=== PATIENT | female | born 1985 | race Caucasian/White ===

== ENCOUNTER 2016-11-18 18:41 | Inpatient (IN) | payer MEDICAID, OTHER ==
--- NOTE | 2016-11-18 19:50 | ED PDOC ---
HPI: Abdomen <SalenaSincere Bryson - Last Filed: 11/18/16 23:13> Chief Complaint (Provider): Bright red blood per rectum History Per: Patient History/Exam Limitations: no limitations Onset/Duration Of Symptoms: Days (1) Outside of [place] travel?: No Current Symptoms Are (Timing): Still Present Location Of Pain/Discomfort: Other (no abdominal pain) Associated Symptoms: denies: Fever, Chills, Nausea, Vomiting, Diarrhea, Loss Of Appetite, Back Pain, Chest Pain, Constipation, Urinary Symptoms Additional History Per: Patient Abnormal Vaginal Bleeding: No <Nanette Ruiz - Last Filed: 11/18/16 23:50> Time Seen by Provider: 11/18/16 19:00 Chief Complaint (Nursing): GI Problem Additional Complaint(s): The patient is a 30yo female, presents to ED for evaluation of bright red blood per rectum for the past day; patient reports she strains with bowel movement. Patient denies any abdominal pain, nausea, vomiting, diarrhea, fever. She also denies taking any medications for the pain. Patient offers no additional medical complaints. (Nanette Ruiz) Past Medical History <SalenaSincere Massey - Last Filed: 11/18/16 23:13> Reviewed: Historical Data, Nursing Documentation, Vital Signs - Medical History PMH: Asthma (asthma as a child but no asthma attacks during adulthood) Denies: HIV, Chronic Kidney Disease - Surgical History Surgical History: - Family History Family History: States: Unknown Family Hx - Social History Current smoker - smoking cessation education provided: No Alcohol: None Drugs: Denies - Immunization History Hx Tetanus Toxoid Vaccination: No Hx Influenza Vaccination: Yes Hx Pneumococcal Vaccination: No <Nanette Ruiz - Last Filed: 11/18/16 23:50> Vital Signs: Last Vital Signs Temp 98.9 F 11/18/16 18:48 Pulse 80 11/18/16 23:33 Resp 18 11/18/16 23:33 BP 118/73 11/18/16 23:13 Pulse Ox 99 11/18/16 23:33 - Home Medications Home Medications: Ambulatory Orders Medication Instructions Recorded Escitalopram [Lexapro] 1 tab PO DAILY 11/18/16 - Allergies Allergies/Adverse Reactions: Allergies Allergy/AdvReac Type Severity Reaction Status Date / Time No Known Allergies Allergy Verified 07/01/14 14:23 Review of Systems ROS Statement: Except As Marked, All Systems Reviewed And Found Negative Constitutional: Negative for: Fever, Chills Gastrointestinal: Positive for: Hematochezia. Negative for: Nausea, Vomiting, Abdominal Pain, Diarrhea <Nanette Ruiz Y - Last Filed: 11/18/16 23:50> Physical Exam - Reviewed Nursing Documentation Reviewed: Yes Vital Signs Reviewed: Yes - Physical Exam Appears: Positive for: Well, Non-toxic (pale), No Acute Distress Head Exam: Positive for: ATRAUMATIC, NORMAL INSPECTION, NORMOCEPHALIC Skin: Positive for: Warm, Pallor Eye Exam: Positive for: Normal appearance Neck: Positive for: Normal, Supple Cardiovascular/Chest: Positive for: Regular Rate, Rhythm Respiratory: Positive for: Normal Breath Sounds. Negative for: Respiratory Distress Gastrointestinal/Abdominal: Positive for: Normal Exam, Soft. Negative for: Tenderness Extremity: Positive for: Normal ROM Neurologic/Psych: Positive for: Alert, Oriented <Nanette Ruiz Y - Last Filed: 11/18/16 23:50> - Laboratory Results Result Diagrams: 11/18/16 20:20 11/18/16 20:20 <Sincere Martino - Last Filed: 11/18/16 23:13> - Laboratory Results Result Diagrams: 11/18/16 20:20 11/18/16 20:20 - ECG O2 Sat by Pulse Oximetry: 99 (RA) Pulse Ox Interpretation: Normal <Nanette Ruiz Y - Last Filed: 11/18/16 23:50> Medical Decision Making <Sincere Martino - Last Filed: 11/18/16 23:13> <Nanette Ruiz Y - Last Filed: 11/18/16 23:50> Medical Decision Making: Time: 1929 Impression: Hematochezia, no abdominal pain Plan: -- Rectal exam with nurse as environmental control administrator -- Labs -- Guaiac stool Reassess Time: 2019 Labs indicate low H&H levels, symptomatic anemia. hemocult positive Patient to be admitted for rectal bleeding. GI consult requested. ordered 2 units prbc but awaiting type and screen Scribe Attestation: Documented by Opal Cherry acting as a scribe for Nanette Ruiz MD. Provider Attestation: All medical record entries made by the Scribe were at my direction and personally dictated by me. I have reviewed the chart and agree that the record accurately reflects my personal performance of the history, physical exam, medical decision making, and the department course for this patient. I have also personally directed, reviewed, and agree with the discharge instructions and disposition. [id number] Consult: GI Consult with Dr. Trevino who is aware and will see the patient tomorrow morning. Scribe Attestation: Documented by Akosua Escalante, acting as a scribe for Nanette Ruiz MD (Nantete Ruiz) Disposition <Sincere Martino - Last Filed: 11/18/16 23:13> - Patient ED Disposition Is Patient to be Admitted: Yes - Disposition Disposition Time: 21:00 <Nanette Ruiz - Last Filed: 11/18/16 23:50> - Clinical Impression Clinical Impression: Rectal bleed - Disposition Condition: STABLE
[2016-11-18 20:32] LABS: BASO % 0.5 % (0.0-2.0); EOS # 0.2 K/uL (0.0-0.7); EOS % 2.3 % (0.0-4.0); HEMOGLOBIN 7.3 g/dL (12.0-16.0); LYMPH # 2.1 K/uL (1.0-4.3); MEAN CELL VOLUME 61.2 fl (81.0-99.0); MEAN CORPUSCULAR HEMOGLOBIN 18.1 pg (27.0-31.0); MEAN CORPUSCULAR HGB CONC 29.6 g/dL (33.0-37.0); MONO # 0.5 K/uL (0.0-0.8); MONO % 5.7 % (0.0-10.0); NEUT # 6.5 K/uL (1.8-7.0); NEUT % 69.5 % (50.0-75.0); RBC 4.03 Mil/uL (3.80-5.20); RED CELL DISTRIBUTION WIDTH 22.5 % (11.5-14.5); WHITE BLOOD COUNT 9.4 K/uL (4.8-10.8)
[2016-11-18 20:37] LABS: ALB/GLOB RATIO 1.3 (1.0-2.1); ALBUMIN 4.1 g/dL (3.5-5.0); ALT/SGPT 31 U/L (9-52); AST/SGOT 17 U/L (14-36); BLOOD UREA NITROGEN 10 mg/dl (7-17); CALCIUM 9.1 mg/dL (8.4-10.2); GFR AFRICAN-AMERICAN > 60; GFR NON-AFRICAN AMERICAN > 60
--- NOTE | 2016-11-18 23:18 | CP.PCM.HP ---
History of Present Illness - History of Present Illness History of Present Illness: CC: large bloody bowel movement x2 HPI 30 year old female with no known past medical history presents after having 2 very large bright red bloody BM without stool, and "very gigantic clots." She states she continues to have the sensation to have another movement but is afraid, pt advised to have movement if she needs. This is associated with lightheaded and weakness for about 24 hours as well. She also reports alternating constipation and diarrhea for about a month. Denies trauma, no hx hemorrhoids. Patient is currently receiving 2 units PRBC, 1 bolus NS, BP 114- 118 in ER, now BP 95, HR 95-99. Will closely monitor patient as she receives blood and bolus of NS. GI consulted in ER. Currently HD stable, but closely monitoring. ROS: per HPI, 12 systems reviewed and negative PMH: denies PSH: c section 2010 FH: denies SH: denies tobacco, ETOH, IVDU Meds: as below Allergies: NKDA Vitals: reviewed and currently stable Exam: GEN: WDWN, alert, cooperative, pale HEENT: NCAT, PERRL, EOMI NECK: supple, no JVD, no lymphadenopathy CARDIAC: +S1S2 RRR LUNG: CTAB No WRR ABD: SOFT NT ND BSX4 NO MASSES NO HSM EXT: +pedal pulses, equal strength NEURO: AAOx3 SKIN warm, dry PSYCH normal mood, normal affect Labs: 11/18/16 20:20 11/18/16 20:20 Assessment and Plan: 30 year old female with no known past medical history presents after having 2 very large bright red bloody BM without stool, and "very gigantic clots." She states she continues to have the sensation to have another movement but is afraid, pt advised to have movement if she needs. This is associated with lightheaded and weakness for about 24 hours as well. She also reports alternating constipation and diarrhea for about a month. Denies trauma, no hx hemorrhoids. Patient is currently receiving 2 units PRBC, 1 bolus NS, BP 114- 118 in ER, now BP 95, HR 95-99. Will closely monitor patient as she receives blood and bolus of NS. GI consulted in ER. Currently HD stable, but closely monitoring. GI Bleed H/H 7.3/24.7 Currently receiving 2 units PRBC, as well as first bolus NS repeat H/H after transfusion, CBC q6 BP between 95-108 systolic at this time, HR 95-99 will closely monitor GI consult in ER NPO denies pain Hold VTE 2/2 bleed Present on Admission - Present on Admission Any Indicators Present on Admission: No Past Patient History - Infectious Disease Hx of Infectious Diseases: None - Tetanus Immunizations Tetanus Immunization: Unknown - Past Medical History & Family History Past Medical History?: Yes - Past Social History Smoking Status: Never Smoked - CARDIAC Hx Cardiac Disorders: No - PULMONARY Hx Asthma: Yes (asthma as a child but no asthma attacks during adulthood) - NEUROLOGICAL Hx Neurological Disorder: Yes Hx Vertigo: Yes - HEENT Hx HEENT Problems: No - RENAL Hx Chronic Kidney Disease: No - ENDOCRINE/METABOLIC Hx Endocrine Disorders: No - HEMATOLOGICAL/ONCOLOGICAL Hx Human Immunodeficiency Virus (HIV): No - INTEGUMENTARY Hx Dermatological Problems: No - MUSCULOSKELETAL/RHEUMATOLOGICAL Hx Musculoskeletal Disorders: No Hx Falls: No - GASTROINTESTINAL Hx Gastrointestinal Disorders: No - GENITOURINARY/GYNECOLOGICAL Hx Genitourinary Disorders: No - PSYCHIATRIC Hx Psychophysiologic Disorder: No Hx Substance Use: No - SURGICAL HISTORY Hx Surgeries: Yes Hx Section: Yes - ANESTHESIA Hx Anesthesia: Yes Hx Anesthesia Reactions: No Hx Malignant Hyperthermia: No Meds Allergies/Adverse Reactions: Allergies Allergy/AdvReac Type Severity Reaction Status Date / Time No Known Allergies Allergy Verified 07/01/14 14:23 Results - Vital Signs Recent Vital Signs: Last Vital Signs Temp 98.9 F 11/18/16 18:48 Pulse 78 11/18/16 22:54 Resp 16 11/18/16 22:54 BP 113/45 L 11/18/16 22:54 Pulse Ox 98 11/18/16 22:54 - Labs Result Diagrams: 11/18/16 20:20 11/18/16 20:20
[2016-11-18 23:41] VITALS: RESP 18
[2016-11-19] MEDS: Sodium Chloride 0.9% 1,000 ML IV SCH ×2 (00:07→12:21)
[2016-11-19] MEDS ORDERED: Sodium Chloride 0.9% 1,000 ML IV SCH (00:30)
[2016-11-19] MEDS ORDERED: Chlorhexidine Gluconate 1 APPL/PKT TP ONE (11:22)
[2016-11-19 12:27] LABS: HEMOGLOBIN 9.6 g/dL (12.0-16.0); MEAN CELL VOLUME 67.7 fl (81.0-99.0); MEAN CORPUSCULAR HEMOGLOBIN 21.6 pg (27.0-31.0); MEAN CORPUSCULAR HGB CONC 31.8 g/dL (33.0-37.0); RBC 4.44 Mil/uL (3.80-5.20); RED CELL DISTRIBUTION WIDTH 29.1 % (11.5-14.5); WHITE BLOOD COUNT 7.3 K/uL (4.8-10.8)
[2016-11-19 12:40] LABS: BLOOD UREA NITROGEN 9 mg/dl (7-17); CALCIUM 8.7 mg/dL (8.4-10.2); GFR AFRICAN-AMERICAN > 60; GFR NON-AFRICAN AMERICAN > 60
[2016-11-19 12:48] LABS: INR 1.2 (0.9-1.2); PARTIAL THROMBOPLASTIN TIME 30.8 Seconds (25.6-37.1); PROTHROMBIN TIME 13.4 Seconds (9.8-13.1)
--- NOTE | 2016-11-19 15:06 | CP.PCM.CON ---
History of Present Illness - History of Present Illness History of Present Illness: 30 yo admitted for symptomatic anemia with abnormal GI vs vaginal bleeding , s/p 2 PRBC for transfusion. Patient reports her LMP was 10/31/16, her periods are monthly, a few days in length and in how heavy they are. Patient had some clots that she noticed yesterday, thought it was GI bleeding, +guiac. Since admission bleeding has completely stopped, no abdominal pain, no N/V, no CP, no SOB. Patient ambulating and tolerating PO diet Past Patient History - Infectious Disease Hx of Infectious Diseases: None - Tetanus Immunizations Tetanus Immunization: Unknown - Past Medical History & Family History Past Medical History?: Yes - Past Social History Smoking Status: Never Smoked - CARDIAC Hx Cardiac Disorders: No - PULMONARY Hx Asthma: Yes (asthma as a child but no asthma attacks during adulthood) - NEUROLOGICAL Hx Neurological Disorder: Yes Hx Vertigo: Yes - HEENT Hx HEENT Problems: No - RENAL Hx Chronic Kidney Disease: No - ENDOCRINE/METABOLIC Hx Endocrine Disorders: No - HEMATOLOGICAL/ONCOLOGICAL Hx Human Immunodeficiency Virus (HIV): No - INTEGUMENTARY Hx Dermatological Problems: No - MUSCULOSKELETAL/RHEUMATOLOGICAL Hx Musculoskeletal Disorders: No Hx Falls: No - GASTROINTESTINAL Hx Gastrointestinal Disorders: No - GENITOURINARY/GYNECOLOGICAL Hx Genitourinary Disorders: No - PSYCHIATRIC Hx Psychophysiologic Disorder: No Hx Substance Use: No - SURGICAL HISTORY Hx Surgeries: Yes Hx Section: Yes - ANESTHESIA Hx Anesthesia: Yes Hx Anesthesia Reactions: No Hx Malignant Hyperthermia: No Meds Allergies/Adverse Reactions: Allergies Allergy/AdvReac Type Severity Reaction Status Date / Time No Known Allergies Allergy Verified 07/01/14 14:23 - Medications Medications: Current Medications Escitalopram Oxalate (Lexapro) 10 mg PO DAILY [facility] Last Admin: 11/19/16 09:04 Dose: Not Given Sodium Chloride (Sodium Chloride 0.9%) 1,000 mls @ 150 mls/hr IV .[id number] [facility] Last Admin: 11/19/16 12:21 Dose: 150 mls/hr Pantoprazole Sodium (Protonix Inj) 40 mg IVP DAILY [facility] Last Admin: 11/19/16 09:04 Dose: 40 mg Physical Exam - Head Exam Head Exam: ATRAUMATIC - Respiratory Exam Respiratory Exam: Clear to Auscultation Bilateral, NORMAL BREATHING PATTERN - Cardiovascular Exam Cardiovascular Exam: REGULAR RHYTHM, +S1, +S2 - GI/Abdominal Exam GI & Abdominal Exam: Normal Bowel Sounds, Soft Additional comments: non-tender, no rebound, no gaurding - Extremities Exam Extremities exam: Positive for: normal inspection Results - Vital Signs Recent Vital Signs: Last Vital Signs Temp 98.3 F 11/19/16 11:12 Pulse 73 11/19/16 11:12 Resp 18 11/19/16 11:12 BP 101/66 11/19/16 11:12 Pulse Ox 98 11/19/16 11:12 - Labs Result Diagrams: 11/19/16 12:00 11/19/16 12:00 Labs: Laboratory Results - last 24 hr 11/18/16 11/19/16 11/19/16 22:28 12:00 12:00 WBC 7.3 RBC 4.44 Hgb 9.6 L D Hct 30.1 L MCV 67.7 L D MCH 21.6 L MCHC 31.8 L RDW 29.1 H Plt Count 245 PT INR APTT Sodium 140 Potassium 4.0 Chloride 110 H Carbon Dioxide 22 Anion Gap 12 BUN 9 Creatinine 0.6 L Est GFR ( Amer) > 60 Est GFR (Non-Af Amer) > 60 Random Glucose 84 Calcium 8.7 Blood Type O POSITIVE Antibody Screen Negative Crossmatch See Detail BBK History Checked Patient has bt 11/19/16 12:00 WBC RBC Hgb Hct MCV MCH MCHC RDW Plt Count PT 13.4 H INR 1.2 APTT 30.8 Sodium Potassium Chloride Carbon Dioxide Anion Gap BUN Creatinine Est GFR ( Amer) Est GFR (Non-Af Amer) Random Glucose Calcium Blood Type Antibody Screen Crossmatch BBK History Checked Assessment & Plan - Assessment and Plan (Free Text) Assessment: A/P 30 yo with possibly irregular vaginal bleeding 1. Patient's LMP was 10/31/16, usually normal, 28 day cycle, moderate. Patient possibly had some irregular vaginal bleeding. Can send for vaginal U/S to evaluate. Patient denies use of contraceptives 2. Otherwise patient is s/p 2 PRBC and stable, VSS. No longer having bleeding. Patient can follow up with outpatient private [employer] for continued care 3. COnsultation appreciated - Date & Time Date: 11/19/16 Time: 15:06
--- NOTE | 2016-11-19 15:57 | US ---
HISTORY: vaginal bleed ? COMPARISON: None available. TECHNIQUE: FINDINGS: UTERUS: Measures 10.5 x 3.7 x 4.3 cm. The uterus is retroverted. Evaluation on transvaginal examination is technically limited due to excessive bowel gas. No fibroid or other mass lesion seen. ENDOMETRIUM: Measures 8.0 mm in diameter. Unremarkable. CERVIX: There is a small nabothian cyst. RIGHT OVARY: Measures 3.1 x 1.8 x 2.2 cm. No solid mass. Normal flow. LEFT OVARY: Measures 2.4 x 1.5 x 2.2 cm. No solid mass. Normal flow. FREE FLUID: No significant free fluid noted. OTHER FINDINGS: None. IMPRESSION: Evaluation of the uterus is technically limited and also partially limited due to excessive bowel gas. The central endometrial echo complex appears normal. No ovarian cyst or adnexal mass.
[2016-11-19 16:08] VITALS: BP 101/62; PULSE 75; TEMP 98.4; O2SAT 99
--- NOTE | 2016-11-19 16:46 | CP.PCM.DIS ---
Provider - Provider Date of Admission: 11/18/16 22:21 Attending physician: Precious Gimenez DO Consults: Dr Uriel Pichardo Time Spent in preparation of Discharge (in minutes): 30 Diagnosis - Discharge Diagnosis (1) Microcytic anemia Status: Acute Comment: to follow up with PCP for outpatient management and evaluation. continue FeSO4 325mg PO BID Hospital Course - Lab Results Lab Results: Most Recent Lab Values WBC 7.3 K/uL (4.8-10.8) 11/19/16 12:00 RBC 4.44 Mil/uL (3.80-5.20) 11/19/16 12:00 Hgb 9.6 g/dL (12.0-16.0) L D 11/19/16 12:00 Hct 30.1 % (34.0-47.0) L 11/19/16 12:00 MCV 67.7 fl (81.0-99.0) L D 11/19/16 12:00 MCH 21.6 pg (27.0-31.0) L 11/19/16 12:00 MCHC 31.8 g/dL (33.0-37.0) L 11/19/16 12:00 RDW 29.1 % (11.5-14.5) H 11/19/16 12:00 Plt Count 245 K/uL (130-400) 11/19/16 12:00 MPV 10.0 fl (7.2-11.7) 11/18/16 20:20 Neut % (Auto) 69.5 % (50.0-75.0) 11/18/16 20:20 Lymph % (Auto) 22.0 % (20.0-40.0) 11/18/16 20:20 [place] % (Auto) 5.7 % (0.0-10.0) 11/18/16 20:20 Eos % (Auto) 2.3 % (0.0-4.0) 11/18/16 20:20 Baso % (Auto) 0.5 % (0.0-2.0) 11/18/16 20:20 Neut # 6.5 K/uL (1.8-7.0) 11/18/16 20:20 Lymph # 2.1 K/uL (1.0-4.3) 11/18/16 20:20 [place] # 0.5 K/uL (0.0-0.8) 11/18/16 20:20 Eos # 0.2 K/uL (0.0-0.7) 11/18/16 20:20 Baso # 0.0 K/uL (0.0-0.2) 11/18/16 20:20 PT 13.4 Seconds (9.8-13.1) H 11/19/16 12:00 INR 1.2 (0.9-1.2) 11/19/16 12:00 APTT 30.8 Seconds (25.6-37.1) 11/19/16 12:00 Sodium 140 mmol/l (132-148) 11/19/16 12:00 Potassium 4.0 MMOL/L (3.6-5.0) 11/19/16 12:00 Chloride 110 mmol/L (98-107) H 11/19/16 12:00 Carbon Dioxide 22 mmol/L (22-30) 11/19/16 12:00 Anion Gap 12 (10-20) 11/19/16 12:00 BUN 9 mg/dl (7-17) 11/19/16 12:00 Creatinine 0.6 mg/dL (0.7-1.2) L 11/19/16 12:00 Est GFR ( Amer) > 60 11/19/16 12:00 Est GFR (Non-Af Amer) > 60 11/19/16 12:00 Random Glucose 84 mg/dL (65-105) 11/19/16 12:00 Calcium 8.7 mg/dL (8.4-10.2) 11/19/16 12:00 Total Bilirubin 0.3 mg/dl (0.2-1.3) 11/18/16 20:20 AST 17 U/L (14-36) 11/18/16 20:20 ALT 31 U/L (9-52) 11/18/16 20:20 Alkaline Phosphatase 109 U/L (38-126) 11/18/16 20:20 Total Protein 7.3 G/DL (6.3-8.2) 11/18/16 20:20 Albumin 4.1 g/dL (3.5-5.0) 11/18/16 20:20 Globulin 3.2 gm/dL (2.2-3.9) 11/18/16 20:20 Albumin/Globulin Ratio 1.3 (1.0-2.1) 11/18/16 20:20 Stool Occult Blood Negative (NEGATIVE) 11/18/16 21:22 Blood Type O POSITIVE 11/18/16 22:28 Antibody Screen Negative 11/18/16 22:28 Crossmatch See Detail 11/18/16 22:28 BBK History Checked Patient has bt 11/18/16 22:28 - Hospital Course Hospital Course: 30 yo female with no significant PMH came in after noticing 2 episodes of passing large amount of blood in the toilet bowl. Not sure it blood came from rectum or from the vagina. Complained of lightheadedness and weakness. Initial CBC showed Hgb of 7.3. She was typed and crossed and received 2 units of PRBC. Hgb went up to 9.6 and patient claimed she felt much better. Pt was referred to GI, Dr Trevino for work ups but rectal exam was negative for stool guiac. [facility] was consulted with Dr Pichardo for possible vaginal bleed. Transvaginal abdl/ Pelvic sonogram was done which showed normal ECHO. Patient's LMP was 10/31/2016. Blood on toilet bowl were menstrual. Dr Pichardo advised follow up in [facility]. Also advised to see PCP for outpatient follow with Microcytic, Microchromic Anemia. Discharge Exam - Head Exam Head Exam: ATRAUMATIC - Eye Exam Eye Exam: absent: Scleral icterus - ENT Exam ENT Exam: Mucous Membranes Moist - Respiratory Exam Respiratory Exam: NORMAL BREATHING PATTERN. absent: Wheezes, Respiratory Distress - Cardiovascular Exam Cardiovascular Exam: REGULAR RHYTHM, +S1, +S2 - GI/Abdominal Exam GI & Abdominal Exam: Soft. absent: Tenderness - Rectal Exam Rectal Exam: Deferred - Neurological Exam Neurological exam: Alert, Oriented x3 - Psychiatric Exam Psychiatric exam: Normal Affect - Skin Skin Exam: Dry, Intact Discharge Plan - Discharge Medications Prescriptions: Ferrous Sulfate [Iron] 325 mg PO BID #30 capsule.er - Follow Up Plan Condition: STABLE Disposition: HOME/ ROUTINE Instructions: Dysfunctional Uterine Bleeding (DC), Rectal Bleeding (DC), Iron Rich Diet (DC), Anemia (DC) Referrals: [facility] [place] [Outside]
--- NOTE | 2016-11-22 09:21 | CON ---
DATE: 11/19/2016 REASON FOR CONSULTATION: Rectal bleeding. HISTORY OF PRESENT ILLNESS: This is a 30-year-old female essentially had brought in for 2 large bright bowel movements and passage of clots. No rectal pain or bleeding prior to this. No burning abdominal discomfort. No weight loss. Currently, lying in bed, in no apparent distress. REVIEW OF SYSTEMS: Have been reviewed, negative apart from the HPI. PHYSICAL EXAMINATION: GENERAL: A pleasant young female, lying in bed comfortably, in no apparent distress. VITAL SIGNS: During the hospital grossly unremarkable. HEENT: Head, normocephalic, atraumatic. Eyes, pupils are equal and reactive to light. No conjunctival pallor or icterus. NECK: Supple. Normal range of motion. No lymphadenopathy appreciated. LUNGS: Coarse . HEART: S1 and S2. Regular rate and rhythm. No . ABDOMEN: Soft, nontender. Bowel sounds present. RECTAL: Has no blood seen . NEUROLOGIC: Alert x3. LABORATORY DATA: Labs have been reviewed. WBC is 9.5, hemoglobin is 7.3, hematocrit of 24.7 normal. ASSESSMENT AND PLAN: This is a 30-year-old female with rectal bleeding. Unclear if this is rectal bleeding, but she said she had a period last night, this morning. On my exam, there is no blood in the vault. This could be vaginal from her periods, unclear etiology, [employer] consult. From GI standpoint, if this is not D[employer]ING [employer]USSER, will likely need a colonoscopy sometime at the patient's convenience. Thank you for the consult. Chas Trevino MD/ PhD
== END 2016-11-19 17:35 | disposition home or self-care (01) | DRG 812 ==
LOC: H.ER 18:41 → H.ERHOLD 22:21 → H.TEL 23:18
PROVIDERS: ADMIT Student in an Organized Health Care Education/Training Program; ATTEND Student in an Organized Health Care Education/Training Program
PROC: 30233N1 Transfusion of Nonautologous Red Blood Cells into Peripheral Vein, Percutaneous Approach (ICD-10-PCS; principal; 2016-11-18)
DX: D50.8 Other iron deficiency anemias (principal); N93.8 Other specified abnormal uterine and vaginal bleeding; J45.909 Unspecified asthma, uncomplicated; K59.00 Constipation, unspecified

== ENCOUNTER 2017-06-28 12:22 | Observation (INO) | payer SELFPAY ==
[2017-06-28] MEDS ORDERED: Sodium Chloride 0.9% 1,000 ML IV STA (13:11)
--- NOTE | 2017-06-28 13:51 | ED PDOC ---
HPI: General Adult Time Seen by Provider: 06/28/17 12:38 Chief Complaint (Nursing): Dizziness/Lightheaded Chief Complaint (Provider): Dizziness/lightheaded History Per: Patient History/Exam Limitations: no limitations Onset/Duration Of Symptoms: Hrs (today) Current Symptoms Are (Timing): Still Present Additional Complaint(s): Ibeth Gan is a 31 year old female, with a past medical history of GI bleeding and anemia, who was sent to the emergency department by clinic for bloody stool, weakness and lightheadedness onset since today. Patient was seen by clinic today but was sent here because of low hemoglobin of 7.9 and possible need for a transfusion. Patient denies any fever, chills, headache, vision changes, numbness or tingling, nausea, vomit, diarrhea, abdominal pain, shortness of breath or chest pain. No further medical complaints. PMD: None provide. Past Medical History Reviewed: Historical Data, Nursing Documentation, Vital Signs Vital Signs: Last Vital Signs Temp 99 F 06/28/17 12:49 Pulse 73 06/28/17 12:49 Resp 18 06/28/17 12:49 BP 113/65 06/28/17 12:49 Pulse Ox 100 06/28/17 14:08 - Medical History PMH: Anemia, Anxiety, Asthma (asthma as a child but no asthma attacks during adulthood) Denies: HIV, Chronic Kidney Disease - Surgical History Surgical History: - Family History Family History: States: Unknown Family Hx - Immunization History Hx Tetanus Toxoid Vaccination: No Hx Influenza Vaccination: Yes Hx Pneumococcal Vaccination: No - Home Medications Home Medications: Ambulatory Orders Medication Instructions Recorded Ferrous Sulfate [Feosol] 325 mg PO TID 06/28/17 - Allergies Allergies/Adverse Reactions: Allergies Allergy/AdvReac Type Severity Reaction Status Date / Time No Known Allergies Allergy Verified 06/28/17 12:48 Review of Systems ROS Statement: Except As Marked, All Systems Reviewed And Found Negative Constitutional: Positive for: Weakness. Negative for: Fever, Chills Eyes: Negative for: Vision Change Cardiovascular: Positive for: Light Headedness. Negative for: Chest Pain Respiratory: Negative for: Shortness of Breath Gastrointestinal: Positive for: Hematochezia. Negative for: Nausea, Vomiting, Abdominal Pain, Diarrhea Neurological: Negative for: Numbness, Headache Physical Exam - Reviewed Nursing Documentation Reviewed: Yes Vital Signs Reviewed: Yes - Physical Exam Appears: Positive for: Non-toxic Head Exam: Positive for: ATRAUMATIC, NORMAL INSPECTION, NORMOCEPHALIC Skin: Positive for: Normal Color, Warm, Dry Eye Exam: Positive for: Normal appearance, EOMI, PERRL Neck: Positive for: Painless ROM, Supple Cardiovascular/Chest: Positive for: Regular Rate, Rhythm. Negative for: Murmur Respiratory: Positive for: Normal Breath Sounds (clear b/l). Negative for: Respiratory Distress Gastrointestinal/Abdominal: Positive for: Normal Exam, Soft. Negative for: Tenderness, Guarding, Rebound Back: Positive for: Normal Inspection. Negative for: L CVA Tenderness, R CVA Tenderness, Vertebral Tenderness Rectal: Positive for: Rectal Tone Is: (intact). Negative for: Other (No gross blood identified.) Extremity: Positive for: Normal ROM. Negative for: Tenderness, Deformity, Swelling Neurologic/Psych: Positive for: Alert, Oriented. Negative for: Motor/Sensory Deficits - Laboratory Results Result Diagrams: 06/28/17 14:00 06/28/17 14:00 Interpretation Of Abn Labs: 7.6 hg - ECG O2 Sat by Pulse Oximetry: 100 (RA) Pulse Ox Interpretation: Normal - Progress ED Course And Treament: 1452: Stable. AAOx3. Will need transfusion. Pt. aware. [facility]. Will admit. Medical Decision Making Medical Decision Making: Initial Impression: Initial Plan: --ABO/RH Type --Type and screen --CMP --CBC w/ differential --PTT --PT --Sodium Chloride 1,000 ml IV 1,000 mls/hr --Occult blood, stool, ER --Reevaluation Scribe Attestation: Documented by Claude George, acting as a scribe for Emre Alejo MD Provider Scribe Attestation: All medical record entries made by the Scribe were at my direction and personally dictated by me. I have reviewed the chart and agree that the record accurately reflects my personal performance of the history, physical exam, medical decision making, and the department course for this patient. I have also personally directed, reviewed, and agree with the discharge instructions and disposition. Disposition - Disposition Forms: [employer] (Vietnamese)
[2017-06-28 14:16] LABS: ALB/GLOB RATIO 1.3 (1.0-2.1); ALBUMIN 4.1 g/dL (3.5-5.0); ALT/SGPT 24 U/L (9-52); AST/SGOT 16 U/L (14-36); BLOOD UREA NITROGEN 8 mg/dl (7-17); CALCIUM 9.4 mg/dL (8.4-10.2); GFR AFRICAN-AMERICAN > 60; GFR NON-AFRICAN AMERICAN > 60
[2017-06-28 14:27] LABS: BASO # 0.1 K/uL (0.0-0.2); BASO % 0.7 % (0.0-2.0); EOS # 0.1 K/uL (0.0-0.7); EOS % 1.8 % (0.0-4.0); HEMOGLOBIN 7.6 g/dL (12.0-16.0); LYMPH # 2.2 K/uL (1.0-4.3); LYMPH % 29.7 % (20.0-40.0); MEAN CELL VOLUME 61.9 fl (81.0-99.0); MEAN CORPUSCULAR HEMOGLOBIN 18.7 pg (27.0-31.0); MEAN CORPUSCULAR HGB CONC 30.2 g/dL (33.0-37.0); MEAN PLATELET VOLUME 9.4 fl (7.2-11.7); MONO # 0.4 K/uL (0.0-0.8); MONO % 5.8 % (0.0-10.0); NEUT # 4.7 K/uL (1.8-7.0); RBC 4.08 Mil/uL (3.80-5.20); RED CELL DISTRIBUTION WIDTH 16.8 % (11.5-14.5); WHITE BLOOD COUNT 7.5 K/uL (4.8-10.8)
[2017-06-28 14:32] LABS: INR 1.2 (0.9-1.2); PROTHROMBIN TIME 13.4 Seconds (9.8-13.1)
[2017-06-28 14:33] LABS: PARTIAL THROMBOPLASTIN TIME 30.5 Seconds (25.6-37.1)
--- NOTE | 2017-06-28 16:11 | CP.PCM.HP ---
History of Present Illness - History of Present Illness History of Present Illness: CC: dizziness HPI: The patient is a 31 y/o woman w/ pmh of anemia presents to the ED sent from the clinic for symptomatic anemia. The patient reports dizziness for 1 week, states the room is spinning but denies headaches, paresthesias, chest pain , SOB, palpitations, abdominal pain, nausea, vomiting, or fever. Patient also reports that she did not eat prior to clinic visit. The patient reports history of anemia and repeatedly bloody bowel movements prompting previous ED visits and admission in the past. The patient was last admitted in 11/2016 for which she received 2 units of PRBC. The patient reports regular menses with no menorrhagia, she reports 5 days of bleeding and uses 3-4 pads/day. The patient is and had in 2010. The patient reports using condoms for control with her . Patient denies history of STDs. The patient takes iron and vitamin supplements. The patient has no other complaints. PMD: [facility] PMH: iron deficiency anemia, obesity allergies: NKDA meds: iron sulfate [employer]: - regular menses, 5 days, 3-4 pads/day - , 2010 - uses condoms for control - denies history of STDs PSH: 2010 Fam: mother 46 y/o HTN, DM2, uterine cancer s/p hysterectomy; father 55 y/o HTN , DM2 Soc: denies smoking, alcohol, and drugs ED course: vitals: 99.0 F, 73 beats/min, 113/65 mm Hg, resp 18, O2 100% RA CBC: 7.5>7.6/25.3<328 CMP: 141/4.0, 103/25, 8/0.6, glucose 100, AST 16, ALT 24, alk phos 100 ABO/Rh: O+ PT: 13.4 PTT: 30.5 INR: 1.2 FOBT: negative EKG: NSR IVF NS 1L bolus 2 units PRBC ordered and to be transfused Present on Admission - Present on Admission Any Indicators Present on Admission: No History of DVT/PE: No History of Uncontrolled Diabetes: No Urinary Catheter: No Decubitus Ulcer Present: No Review of Systems - Review of Systems All systems: reviewed and no additional remarkable complaints except - Constitutional Constitutional: absent: Anorexia, Fever, Headache - EENT Eyes: absent: Change in Vision - Cardiovascular Cardiovascular: absent: Chest Pain, Dyspnea, Irregular Heart Rhythm, Leg Edema, Palpitations, Pedal Edema - Respiratory Respiratory: absent: Cough - Gastrointestinal Gastrointestinal: Hematochezia. absent: Abdominal Pain, Coffee Ground Emesis, Diarrhea, Nausea, Vomiting - Genitourinary Genitourinary: absent: Dysuria, Hematuria - Reproductive: Female Reproductive:Female: Menses 1-7 Days - Menstruation Menstruation: absent: Heavy Menses, Abnormal Vaginal Bleeding - Integumentary Integumentary: absent: Rash - Neurological Neurological: Dizziness. absent: Numbness, Headaches, Tingling Past Patient History - Infectious Disease Hx of Infectious Diseases: None - Tetanus Immunizations Tetanus Immunization: Unknown - Past Medical History & Family History Past Medical History?: Yes - Past Social History Smoking Status: Never Smoked - CARDIAC Hx Cardiac Disorders: No - PULMONARY Hx Asthma: Yes (asthma as a child but no asthma attacks during adulthood) - NEUROLOGICAL Hx Neurological Disorder: Yes Hx Vertigo: Yes - HEENT Hx HEENT Problems: No - RENAL Hx Chronic Kidney Disease: No - ENDOCRINE/METABOLIC Hx Endocrine Disorders: No - HEMATOLOGICAL/ONCOLOGICAL Hx Anemia: Yes Hx Human Immunodeficiency Virus (HIV): No - INTEGUMENTARY Hx Dermatological Problems: No - MUSCULOSKELETAL/RHEUMATOLOGICAL Hx Musculoskeletal Disorders: No Hx Falls: No - GASTROINTESTINAL Hx Gastrointestinal Disorders: No - GENITOURINARY/GYNECOLOGICAL Hx Genitourinary Disorders: No - PSYCHIATRIC Hx Anxiety: Yes - SURGICAL HISTORY Hx Surgeries: Yes Hx Section: Yes - ANESTHESIA Hx Anesthesia: Yes Hx Anesthesia Reactions: No Hx Malignant Hyperthermia: No Meds Allergies/Adverse Reactions: Allergies Allergy/AdvReac Type Severity Reaction Status Date / Time No Known Allergies Allergy Verified 06/28/17 12:48 Physical Exam - Constitutional Appears: No Acute Distress - Head Exam Head Exam: ATRAUMATIC, NORMAL INSPECTION, NORMOCEPHALIC - Eye Exam Eye Exam: EOMI, Normal appearance, PERRL. absent: Scleral icterus Pupil Exam: NORMAL ACCOMODATION Additional comments: mild pallor of the conjuctiva - ENT Exam ENT Exam: Mucous Membranes Moist - Neck Exam Neck exam: Positive for: Full Rom. Negative for: Tenderness - Respiratory Exam Respiratory Exam: Clear to Auscultation Bilateral, NORMAL BREATHING PATTERN. absent: Decreased Breath Sounds, Rales, Rhonchi, Wheezes, Respiratory Distress - Cardiovascular Exam Cardiovascular Exam: REGULAR RHYTHM - GI/Abdominal Exam GI & Abdominal Exam: Normal Bowel Sounds, Soft. absent: Distended, Tenderness - Extremities Exam Extremities exam: Positive for: normal inspection. Negative for: calf tenderness, pedal edema, tenderness - Neurological Exam Neurological exam: Alert, CN II-XII Intact, Oriented x3 - Skin Skin Exam: Dry, Intact, Pallor, Warm Results - Vital Signs Recent Vital Signs: Last Vital Signs Temp 98.4 F 06/28/17 15:29 Pulse 79 06/28/17 15:29 Resp 16 06/28/17 15:29 BP 93/65 L 06/28/17 15:29 Pulse Ox 100 06/28/17 15:29 - Labs Result Diagrams: 06/28/17 14:00 06/28/17 14:00 Labs: Laboratory Results - last 24 hr 06/28/17 06/28/17 06/28/17 13:50 14:00 14:00 WBC 7.5 RBC 4.08 Hgb 7.6 L Hct 25.3 L MCV 61.9 L D MCH 18.7 L MCHC 30.2 L RDW 16.8 H Plt Count 328 MPV 9.4 Neut % (Auto) 62.0 Lymph % (Auto) 29.7 [place] % (Auto) 5.8 Eos % (Auto) 1.8 Baso % (Auto) 0.7 Neut # (Auto) 4.7 Lymph # (Auto) 2.2 [place] # (Auto) 0.4 Eos # (Auto) 0.1 Baso # (Auto) 0.1 PT INR APTT Sodium Potassium Chloride Carbon Dioxide Anion Gap BUN Creatinine Est GFR ( Amer) Est GFR (Non-Af Amer) Random Glucose Calcium Total Bilirubin AST ALT Alkaline Phosphatase Total Protein Albumin Globulin Albumin/Globulin Ratio Stool Occult Blood Negative Blood Type O POSITIVE Antibody Screen Negative Crossmatch See Detail BBK History Checked Patient has bt 06/28/17 06/28/17 14:00 14:00 WBC RBC Hgb Hct MCV MCH MCHC RDW Plt Count MPV Neut % (Auto) Lymph % (Auto) [place] % (Auto) Eos % (Auto) Baso % (Auto) Neut # (Auto) Lymph # (Auto) [place] # (Auto) Eos # (Auto) Baso # (Auto) PT 13.4 H INR 1.2 APTT 30.5 Sodium 141 Potassium 4.0 Chloride 103 Carbon Dioxide 25 Anion Gap 17 BUN 8 Creatinine 0.6 L Est GFR ( Amer) > 60 Est GFR (Non-Af Amer) > 60 Random Glucose 100 Calcium 9.4 Total Bilirubin 0.7 AST 16 ALT 24 Alkaline Phosphatase 100 Total Protein 7.3 Albumin 4.1 Globulin 3.2 Albumin/Globulin Ratio 1.3 Stool Occult Blood Blood Type Antibody Screen Crossmatch BBK History Checked Assessment & Plan - Assessment and Plan (Free Text) Assessment: The patient is a 31 y/o woman w/ pmh of anemia presents to the ED sent from the clinic for symptomatic anemia Plan: Symptomatic anemia - complains only of dizziness when standing, walking, and even while in stretcher - patient has chronic iron deficiency anemia, denies menorrhagia - patient on Ferrous Sulfate 325 mg PO TID, continue medication - Has appointment 06/30/2017 for colonoscopy due to repeated bright red blood per rectum - vitals: 99.0 F, 73 beats/min, 113/65 mm Hg, resp 18, O2 100% RA - CBC: 7.5>7.6/25.3<328, MCV 61.9 - CMP: 141/4.0, 103/25, 8/0.6, glucose 100, AST 16, ALT 24, alk phos 100 - ABO/Rh: O+ - PT: 13.4 - PTT: 30.5 - INR: 1.2 - FOBT: negative - EKG: NSR - IVF NS 1L bolus - 2 units PRBC ordered and to be administered - orthostatic BPs - admit to Tele for observation - monitor for acute changes Prophylactic measures - SCDs for now due to symptomatic anemia
[2017-06-29 05:34] LABS: BASO # 0.1 K/uL (0.0-0.2); BASO % 0.7 % (0.0-2.0); EOS # 0.3 K/uL (0.0-0.7); EOS % 3.2 % (0.0-4.0); HEMOGLOBIN 11.1 g/dL (12.0-16.0); LYMPH # 3.2 K/uL (1.0-4.3); LYMPH % 33.9 % (20.0-40.0); MEAN CELL VOLUME 67.5 fl (81.0-99.0); MEAN CORPUSCULAR HGB CONC 32.5 g/dL (33.0-37.0); MEAN PLATELET VOLUME 9.5 fl (7.2-11.7); MONO # 0.7 K/uL (0.0-0.8); MONO % 7.5 % (0.0-10.0); NEUT # 5.1 K/uL (1.8-7.0); NEUT % 54.7 % (50.0-75.0); NRBC % 0.1 % (0.0-0.0); RBC 5.06 Mil/uL (3.80-5.20); RED CELL DISTRIBUTION WIDTH 21.5 % (11.5-14.5); WHITE BLOOD COUNT 9.4 K/uL (4.8-10.8)
[2017-06-29 07:58] VITALS: BP 104/67; PULSE 88; RESP 18; TEMP 98.7; O2SAT 99
[2017-06-29] MEDS ORDERED: Pneumococcal 23-Valent Vaccine IM ONE (09:00)
--- NOTE | 2017-06-29 10:18 | CP.PCM.DIS ---
Provider - Provider Date of Admission: 06/28/17 15:02 Attending physician: Kyali Quezada MD Time Spent in preparation of Discharge (in minutes): 15 Diagnosis - Discharge Diagnosis (1) Symptomatic anemia Status: Acute (2) Dizziness Status: Resolved Hospital Course - Lab Results Lab Results: Most Recent Lab Values WBC 9.4 K/uL (4.8-10.8) 06/29/17 04:20 RBC 5.06 Mil/uL (3.80-5.20) 06/29/17 04:20 Hgb 11.1 g/dL (12.0-16.0) L D 06/29/17 04:20 Hct 34.2 % (34.0-47.0) 06/29/17 04:20 MCV 67.5 fl (81.0-99.0) L D 06/29/17 04:20 MCH 22.0 pg (27.0-31.0) L 06/29/17 04:20 MCHC 32.5 g/dL (33.0-37.0) L 06/29/17 04:20 RDW 21.5 % (11.5-14.5) H 06/29/17 04:20 Plt Count 315 K/uL (130-400) 06/29/17 04:20 MPV 9.5 fl (7.2-11.7) 06/29/17 04:20 Neut % (Auto) 54.7 % (50.0-75.0) 06/29/17 04:20 Lymph % (Auto) 33.9 % (20.0-40.0) 06/29/17 04:20 [place] % (Auto) 7.5 % (0.0-10.0) 06/29/17 04:20 Eos % (Auto) 3.2 % (0.0-4.0) 06/29/17 04:20 Baso % (Auto) 0.7 % (0.0-2.0) 06/29/17 04:20 Neut # (Auto) 5.1 K/uL (1.8-7.0) 06/29/17 04:20 Lymph # (Auto) 3.2 K/uL (1.0-4.3) 06/29/17 04:20 [place] # (Auto) 0.7 K/uL (0.0-0.8) 06/29/17 04:20 Eos # (Auto) 0.3 K/uL (0.0-0.7) 06/29/17 04:20 Baso # (Auto) 0.1 K/uL (0.0-0.2) 06/29/17 04:20 PT 13.4 Seconds (9.8-13.1) H 06/28/17 14:00 INR 1.2 (0.9-1.2) 06/28/17 14:00 APTT 30.5 Seconds (25.6-37.1) 06/28/17 14:00 Sodium 141 mmol/l (132-148) 06/28/17 14:00 Potassium 4.0 MMOL/L (3.6-5.0) 06/28/17 14:00 Chloride 103 mmol/L (98-107) 06/28/17 14:00 Carbon Dioxide 25 mmol/L (22-30) 06/28/17 14:00 Anion Gap 17 (10-20) 06/28/17 14:00 BUN 8 mg/dl (7-17) 06/28/17 14:00 Creatinine 0.6 mg/dl (0.7-1.2) L 06/28/17 14:00 Est GFR ( Amer) > 60 06/28/17 14:00 Est GFR (Non-Af Amer) > 60 06/28/17 14:00 Random Glucose 100 mg/dL (65-105) 06/28/17 14:00 Calcium 9.4 mg/dL (8.4-10.2) 06/28/17 14:00 Total Bilirubin 0.7 mg/dl (0.2-1.3) 06/28/17 14:00 AST 16 U/L (14-36) 06/28/17 14:00 ALT 24 U/L (9-52) 06/28/17 14:00 Alkaline Phosphatase 100 U/L (38-126) 06/28/17 14:00 Total Protein 7.3 G/DL (6.3-8.2) 06/28/17 14:00 Albumin 4.1 g/dL (3.5-5.0) 06/28/17 14:00 Globulin 3.2 gm/dL (2.2-3.9) 06/28/17 14:00 Albumin/Globulin Ratio 1.3 (1.0-2.1) 06/28/17 14:00 Urine HCG, Qual Negative (NEGATIVE) 06/29/17 09:07 Stool Occult Blood Negative (NEGATIVE) 06/28/17 13:50 Blood Type O POSITIVE 06/28/17 14:00 Antibody Screen Negative 06/28/17 14:00 Crossmatch See Detail 06/28/17 14:00 BBK History Checked Patient has bt 06/28/17 14:00 - Hospital Course Hospital Course: The patient is a 31 y/o woman w/ pmh of anemia presents to the ED sent from the clinic for symptomatic anemia. The patient reports dizziness for 1 week, states the room is spinning but denies headaches, paresthesias, chest pain, SOB , palpitations, abdominal pain, nausea, vomiting, or fever. The patient VSS, CBC showed Hb 7.6, BMP WNL, FOBT negative. The patient had blood type and screen; thus, received 2 units of PRBC without complications. The patient's Hb 11.1 this morning. The patient has no complaints and dizziness has resolved. The patient has been seen, examined, and deemed medically fit for discharge home. The patient is to follow up w/ scheduled colonoscopy for tomorrow. Patient is to follow up w/ [facility] s/p colonsocopy. Discharge Exam - Head Exam Head Exam: ATRAUMATIC, NORMAL INSPECTION, NORMOCEPHALIC - Eye Exam Eye Exam: Normal appearance - ENT Exam ENT Exam: Mucous Membranes Moist - Neck Exam Neck exam: Full Rom - Respiratory Exam Respiratory Exam: Clear to PA & Lateral, UNREMARKABLE. absent: Decreased Breath Sounds, Rales, Rhonchi, Wheezes, Respiratory Distress - Cardiovascular Exam Cardiovascular Exam: REGULAR RHYTHM. absent: Tachycardia - GI/Abdominal Exam GI & Abdominal Exam: Normal Bowel Sounds, Soft. absent: Distended, Tenderness - Extremities Exam Extremities exam: normal inspection - Neurological Exam Neurological exam: Alert, CN II-XII Intact, Normal Gait, Oriented x3 - Skin Skin Exam: Dry, Intact, Normal Color, Warm Discharge Plan - Follow Up Plan Condition: STABLE Disposition: HOME/ ROUTINE Referrals: Laurie Cedeño MD [Medical Doctor] - [facility] [Outside]
--- NOTE | 2017-06-29 22:22 | CARD ---
APPROVED REPORT EKG Measurement Heart [id number] <Conclusion> Normal sinus rhythm Normal ECG
== END 2017-06-29 11:00 | disposition home or self-care (01) ==
LOC: H.ER 12:22 → H.ERHOLD 15:02 → H.TEL 18:20
PROVIDERS: ADMIT Family Medicine Geriatric Medicine; ATTEND Family Medicine Geriatric Medicine
DX: D50.9 Iron deficiency anemia, unspecified (principal); E66.9 Obesity, unspecified; Z68.29 Body mass index [BMI] 29.0-29.9, adult; Z23 Encounter for immunization; F41.9 Anxiety disorder, unspecified
CPT/HCPCS: 36415; 36430; 80053; 84703; 85025; 85610; 85730; 86850; 86900; 86920; 90471; 90732; 93005; 96360; 99285; G0328; G0378; J7040; P9051

== ENCOUNTER 2017-06-30 10:16 | Day surgery (SDC) | payer SELFPAY ==
[2017-06-30] MEDS ORDERED: Lactated Ringer's 1,000 ML IV ONE (10:33)
[2017-06-30] MEDS ORDERED: Lidocaine PF 2% (5 ml) Inj (For Cardiac Arrhy) IV ONE (11:29)
[2017-06-30] MEDS ORDERED: Propofol 10 mg/ml Inj (20 ML) ONE (11:29)
[2017-06-30 12:27] VITALS: TEMP 97.5
[2017-06-30 12:43] VITALS: BP 104/52; PULSE 75; RESP 14; O2SAT 97
== END 2017-06-30 13:53 | disposition home or self-care (01) ==
LOC: H.ENDO 10:16
PROVIDERS: ATTEND Internal Medicine Gastroenterology
DX: K62.5 Hemorrhage of anus and rectum (principal); D50.9 Iron deficiency anemia, unspecified; K62.89 Other specified diseases of anus and rectum; C20 Malignant neoplasm of rectum
CPT/HCPCS: 45380; 45381; 88305; J2001; J2704; J7120

== ENCOUNTER 2017-08-12 17:34 | Inpatient (IN) | payer MEDICAID, OTHER, SELFPAY ==
[2017-08-12 17:34] VITALS: BMI 29.8
[2017-08-12] MEDS ORDERED: Morphine 4 MG/ML VIAL ONE (19:13)
[2017-08-12] MEDS ORDERED: Sodium Chloride 0.9% 1,000 ML IV STA (19:38)
[2017-08-12] MEDS ORDERED: Morphine 4 MG/ML VIAL IVP ONE (19:43)
[2017-08-12 20:08] LABS: BASO % 0.4 % (0.0-2.0); EOS % 0.4 % (0.0-4.0); HEMOGLOBIN 12.3 g/dL (12.0-16.0); LYMPH # 2.5 K/uL (1.0-4.3); LYMPH % 20.5 % (20.0-40.0); MEAN CELL VOLUME 70.5 fl (81.0-99.0); MEAN CORPUSCULAR HEMOGLOBIN 23.3 pg (27.0-31.0); MEAN CORPUSCULAR HGB CONC 33.1 g/dL (33.0-37.0); MEAN PLATELET VOLUME 9.8 fl (7.2-11.7); MONO # 0.3 K/uL (0.0-0.8); MONO % 2.7 % (0.0-10.0); NEUT # 9.3 K/uL (1.8-7.0); NRBC % 0.1 % (0.0-0.0); RBC 5.28 Mil/uL (3.80-5.20); RED CELL DISTRIBUTION WIDTH 25.4 % (11.5-14.5); WHITE BLOOD COUNT 12.2 K/uL (4.8-10.8)
[2017-08-12 20:21] LABS: ALB/GLOB RATIO 1.2 (1.0-2.1); ALBUMIN 4.4 g/dL (3.5-5.0); ALT/SGPT 26 U/L (9-52); AST/SGOT 16 U/L (14-36); BLOOD UREA NITROGEN 14 mg/dl (7-17); CALCIUM 9.8 mg/dL (8.4-10.2); GFR AFRICAN-AMERICAN > 60; GFR NON-AFRICAN AMERICAN > 60; LIPASE 37 U/L (23-300)
[2017-08-12 20:23] LABS: INR 1.2 (0.9-1.2); PARTIAL THROMBOPLASTIN TIME 25.1 Seconds (25.6-37.1); PROTHROMBIN TIME 13.2 Seconds (9.8-13.1)
[2017-08-12] MEDS ORDERED: Iohexol 300 100 ML IJ ONE (21:11)
--- NOTE | 2017-08-12 21:55 | ED PDOC ---
HPI: Abdomen Time Seen by Provider: 08/12/17 19:22 Chief Complaint (Nursing): Abdominal Pain Chief Complaint (Provider): Abdominal pain History Per: Patient History/Exam Limitations: no limitations Onset/Duration Of Symptoms: Days (x1) Current Symptoms Are (Timing): Still Present Quality Of Discomfort: Sharp Associated Symptoms: Nausea, Constipation. denies: Fever, Chills, Vomiting, Loss Of Appetite, Other (SOB, chest pain) Additional Complaint(s): Ibeth Snow is a 31 year old female, with a past medical history of colorectal CA, who presents to the emergency department complaining of a sharp constant abdominal pain onset since yesterday. Patient reports she finished her first round of chemotherapy x4 days ago and states as of yesterday she developed the abdominal pain associated with nausea. Patient reports changes in appetite and states she feels constipated. Patient has not been eating but has been drinking regular fluids. She denies any vomiting, fever, chills, shortness of breath or chest pain. No further medical complaints. PMD: Sarahi Cedeño V Past Medical History Reviewed: Historical Data, Nursing Documentation, Vital Signs Vital Signs: Last Vital Signs Temp 99.0 F 08/12/17 17:43 Pulse 95 H 08/12/17 17:43 Resp 16 08/12/17 17:43 BP 98/71 L 08/12/17 17:43 Pulse Ox 98 08/13/17 00:06 - Medical History PMH: Anemia (PT WAS IN THE HOSPITAL WITH HGB 6 AND 2 UNITS OF BLOOD TRANSFUSION) , Anxiety, Asthma (asthma as a child but no asthma attacks during adulthood), Depression Denies: Chronic Kidney Disease - Surgical History Surgical History: Endoscopy, - Family History Family History: States: Unknown Family Hx - Social History Current smoker - smoking cessation education provided: No Alcohol: None Drugs: Denies - Immunization History Hx Tetanus Toxoid Vaccination: No Hx Influenza Vaccination: Yes Hx Pneumococcal Vaccination: No - Home Medications Home Medications: Ambulatory Orders Medication Instructions Recorded Iron,Carb/Vit C/Vit B12/Folic 1 tab PO DAILY 07/01/17 [Iron 100 Plus Tablet] - Allergies Allergies/Adverse Reactions: Allergies Allergy/AdvReac Type Severity Reaction Status Date / Time No Known Allergies Allergy Verified 06/28/17 12:48 Review of Systems ROS Statement: Except As Marked, All Systems Reviewed And Found Negative Constitutional: Negative for: Fever, Chills Cardiovascular: Negative for: Chest Pain Respiratory: Negative for: Shortness of Breath Gastrointestinal: Positive for: Nausea, Abdominal Pain (sharp, constant), Constipation. Negative for: Vomiting Physical Exam - Reviewed Nursing Documentation Reviewed: Yes Vital Signs Reviewed: Yes - Physical Exam Appears: Positive for: Uncomfortable Head Exam: Positive for: ATRAUMATIC, NORMAL INSPECTION, NORMOCEPHALIC Skin: Positive for: Normal Color, Warm, Dry Eye Exam: Positive for: Normal appearance, EOMI, PERRL Neck: Positive for: Painless ROM, Supple Cardiovascular/Chest: Positive for: Regular Rate, Rhythm. Negative for: Murmur Respiratory: Positive for: Normal Breath Sounds. Negative for: Respiratory Distress Gastrointestinal/Abdominal: Positive for: Tenderness (diffused lower abdominal tenderness) Back: Positive for: Normal Inspection. Negative for: L CVA Tenderness, R CVA Tenderness, Vertebral Tenderness Extremity: Positive for: Normal ROM (upper and lower extremities). Negative for : Tenderness, Deformity, Swelling Neurologic/Psych: Positive for: Alert, Oriented. Negative for: Motor/Sensory Deficits - Laboratory Results Result Diagrams: 08/12/17 20:00 08/12/17 20:00 - ECG O2 Sat by Pulse Oximetry: 98 (RA) Pulse Ox Interpretation: Normal Medical Decision Making Medical Decision Making: Initial Impression: 31 y/o female with abdominal pain in setting of colorectal CA and chemo Initial Plan: --Abd & Pelvis IV Contrast --EKG --CMP --Lact Acid, Plasma --LDH --Lipase --Magnesium --Urine --Urine dipstick --CBC w/ differential --PTT --PT --Morphine 4 mg IVP --Sodium Chloride 1,000 ml IV 1,000 mls/hr --Zofran ODT 4 mg PO --Blood culture --Urinalysis --Reevaluation Time: 2328 --Abd & pelvis IV CT FINDINGS: There is a small stable hypoattenuating area adjacent to the falciform ligament likely focal fatty infiltration. The spleen, pancreas, kidneys are normal. No gallstones. Sutures at the rectosigmoid junction presumably keeping with the patient's recent diagnosis of colorectal cancer. There is fluid within the colon and terminal ileum, a nonspecific finding however could also be associated with diarrhea producing enteritis. Clinical correlation recommended. There is a moderate amount of stool within the left colon consistent with constipation. There dilatioof the distal sigmoid colon with a large amount of stool with mild thickening and indistinctness of the surrounding wall and haziness in the adjacent fat. This finding raises concern for near fecal impaction with possible early developing colitis. Bilateral ovarian follicles are noted with a 1.4 x 1.8 cm left ovarian cyst. A small amount of free fluid is present within the pelvis. A normal appendix is identified axial images 130 - 140, and coronal images 50 - 60. IMPRESSION: Suture rectosigmoid junction in keeping with the patient's recent history of colorectal cancer. Large amount of stool in the distal sigmoid with slightly thickened indistinct wall and haziness in the adjacent fat. Findings suggest near fecal impaction with possible early developing colitis. Left ovarian cyst. Small amount of pelvic free fluid. Right colonic fluid as discussed above. Time: 2341 --Upon reevaluation, patient developed diarrhea since being in the emergency department. --Patient given Ciprofloxcin 400 mg IV and Dicyclomine 20 mg PO. --Case referred to Dr. Lisa VELAZQUEZ --Admit to hospital routine: as inpatient in med/surg for stercoral colitis and colorectal CA under the care of Dr. Kayli Villa MD. Scribe Attestation: Documented by Claude George and Reny Shelton, acting as a scribe for Sincere Martino MD Provider Scribe Attestation: All medical record entries made by the Scribe were at my direction and personally dictated by me. I have reviewed the chart and agree that the record accurately reflects my personal performance of the history, physical exam, medical decision making, and the department course for this patient. I have also personally directed, reviewed, and agree with the discharge instructions and disposition. Disposition - Clinical Impression Clinical Impression: Colitis, Constipation - Patient ED Disposition Is Patient to be Admitted: Yes (inpatient) - Disposition Disposition Time: 23:42 Condition: STABLE
[2017-08-12 22:20] LABS: SQUAMOUS EPITHIAL 2 /hpf (0-5); URINE BACTERIA RARE (<OCC); URINE BILIRUBIN NEGATIVE (NEGATIVE); URINE BLOOD NEGATIVE (NEGATIVE); URINE CLARITY SLIGHTY-CLOUDY (Clear); URINE COLOR AMBER (YELLOW); URINE GLUCOSE (UA) NEG (Normal); URINE LEUKOCYTE ESTERASE MOD Leu/uL (Negative); URINE PROTEIN NEGATIVE (NEGATIVE)
--- NOTE | 2017-08-12 23:29 | CT ---
EXAM: CT Abdomen and Pelvis With Intravenous Contrast EXAM DATE/TIME: 08/12/2017 7:43 PM CLINICAL HISTORY: 31 years old, female; Pain; Abdominal pain; Localized; Lower; Patient HX: Recent diag of colorectal ca. Patient states: She is on chemo; Additional info: Abd pain HX colorectal ca TECHNIQUE: Axial computed tomography images of the abdomen and pelvis with intravenous contrast. All CT scans at this facility use one or more dose reduction techniques, viz.: automated exposure control; ma/kV adjustment per patient size (including targeted exams where dose is matched to indication; i.e. head); or iterative reconstruction technique. Coronal and sagittal reformatted images were created and reviewed. CONTRAST: 95 mL of administered intravenously. COMPARISON: CT - ABD PELVIS IV CONTRAST ONLY 2017-06-20 11:03 FINDINGS: There is a small stable hypoattenuating area adjacent to the falciform ligament likely focal fatty infiltration. The spleen, pancreas, kidneys are normal. No gallstones. Sutures at the rectosigmoid junction presumably keeping with the patient's recent diagnosis of colorectal cancer. There is fluid within the colon and terminal ileum, a nonspecific finding however could also be associated with diarrhea producing enteritis. Clinical correlation recommended. There is a moderate amount of stool within the left colon consistent with constipation. There dilatioof the distal sigmoid colon with a large amount of stool with mild thickening and indistinctness of the surrounding wall and haziness in the adjacent fat. This finding raises concern for near fecal impaction with possible early developing colitis. Bilateral ovarian follicles are noted with a 1.4 x 1.8 cm left ovarian cyst. A small amount of free fluid is present within the pelvis. A normal appendix is identified axial images 130 - 140, and coronal images 50 - 60. IMPRESSION: Suture rectosigmoid junction in keeping with the patient's recent history of colorectal cancer. Large amount of stool in the distal sigmoid with slightly thickened indistinct wall and haziness in the adjacent fat. Findings suggest near fecal impaction with possible early developing colitis. Left ovarian cyst. Small amount of pelvic free fluid. Right colonic fluid as discussed above.
[2017-08-12] MEDS ORDERED: metroNIDAZOLE 500mg/100ml NS 100 ML IVPB STA (23:43)
[2017-08-12] MEDS ORDERED: Ciprofloxacin 400mg/200ml D5W 400 MG/200 ML BAG IV STA (23:43)
[2017-08-13] MEDS ORDERED: Morphine 4 MG/ML VIAL IVP ONE (00:40)
[2017-08-13] MEDS ORDERED: Morphine 4 MG/ML VIAL ONE (00:47)
[2017-08-13] MEDS ORDERED: Ciprofloxacin 400mg/200ml D5W 400 MG/200 ML BAG IVPB ONE (00:53)
--- NOTE | 2017-08-13 00:55 | CP.PCM.HP ---
<Malena Gonzalez - Last Filed: 08/13/17 04:46> History of Present Illness - History of Present Illness History of Present Illness: 31 y/o F with PMHx of recent diagnosed colon cancer on chemotherapy and radiotherapy presents to ED complaining of abdominal pain and diarrheas. Patient states that last (08/11/17) she had her first chemotherapy treatment for her colon cancer at [facility], next day, Tuesday she underwent radiotherapy at [facility], and that night she started with diffuse, colic abdominal pain, intensity 9/10, no aggravating or alleviating factors, radiating to her anal area, associated with watery bloody diarrheas x 3 , still having similar diarrheas in ER. Patient also reports she feels weak and c/o dysuria. Denies fevers, chills, nausea, vomiting, Cp, SOB, dizziness, palpitations, blood in urine. PMD: [facility] Onc: Dr. James Full CODE PMHx: Colon CA diagnosed on 06/30/17 currently on chemo/radiotherapy allergies: NKDA FH:Mother: alive/HTN, DM; Father: alive:HTN, DM meds: Iron PO SHx: x 1 [employer]: LMP: 08/01/17 Socialhx:never smoker, denies etoh or illicit drugs Emergency contact: : Rogelio Camilo: [phone] ER course: VS:afebrile PE: abd: diffuse tenderness to palpation, no rebound tenderness, no rigidity or guarding noted Labs: CBC: leukocytosis, CMP: mild hypokalemia, normal lipase abd/pelvis IV CT scan: treatment:cipro 400 mg IV, flagyl 500 mg IV, bentyl 20 mg PO x 2, zofran 4 mg PO , morphine 4 mg IV Present on Admission - Present on Admission Any Indicators Present on Admission: No History of DVT/PE: No History of Uncontrolled Diabetes: No Urinary Catheter: No Decubitus Ulcer Present: No Review of Systems - Review of Systems All systems: reviewed and no additional remarkable complaints except (as per HPI ) Past Patient History - Infectious Disease Hx of Infectious Diseases: None - Tetanus Immunizations Tetanus Immunization: Unknown - Past Medical History & Family History Past Medical History?: Yes - Past Social History Alcohol: None Drugs: Denies - CARDIAC Hx Cardiac Disorders: No - PULMONARY Hx Asthma: Yes (asthma as a child but no asthma attacks during adulthood) - NEUROLOGICAL Hx Neurological Disorder: Yes Hx Dizziness: Yes Hx Vertigo: Yes - HEENT Hx HEENT Problems: No - RENAL Hx Chronic Kidney Disease: No - ENDOCRINE/METABOLIC Hx Endocrine Disorders: No - HEMATOLOGICAL/ONCOLOGICAL Hx Anemia: Yes (PT WAS IN THE HOSPITAL WITH HGB 6 AND 2 UNITS OF BLOOD TRANSFUSION) - INTEGUMENTARY Hx Dermatological Problems: No - MUSCULOSKELETAL/RHEUMATOLOGICAL Hx Musculoskeletal Disorders: No - GASTROINTESTINAL Hx Gastrointestinal Disorders: Yes Other/Comment: HX: RECTAL CANCER - GENITOURINARY/GYNECOLOGICAL Hx Genitourinary Disorders: No - PSYCHIATRIC Hx Anxiety: Yes Hx Depression: Yes - SURGICAL HISTORY Hx Surgeries: Yes Hx Section: Yes - ANESTHESIA Hx Anesthesia: Yes Hx Anesthesia Reactions: No Hx Malignant Hyperthermia: No Meds Allergies/Adverse Reactions: Allergies Allergy/AdvReac Type Severity Reaction Status Date / Time No Known Allergies Allergy Verified 06/28/17 12:48 Physical Exam - Constitutional Appears: Non-toxic, No Acute Distress - Eye Exam Eye Exam: Normal appearance - ENT Exam ENT Exam: Mucous Membranes Moist - Respiratory Exam Respiratory Exam: Clear to Auscultation Bilateral, NORMAL BREATHING PATTERN. absent: Rales, Rhonchi, Wheezes, Respiratory Distress, Stridor - Cardiovascular Exam Cardiovascular Exam: REGULAR RHYTHM, RRR, +S1, +S2. absent: Bradycardia, Tachycardia - GI/Abdominal Exam GI & Abdominal Exam: Normal Bowel Sounds, Soft, Tenderness (diffuse tenderness to palpation of all quadrants). absent: Guarding, Rebound, Rigid - Extremities Exam Extremities exam: Positive for: normal inspection. Negative for: calf tenderness, pedal edema - Back Exam Back exam: NORMAL INSPECTION. absent: CVA tenderness (L), CVA tenderness (R) - Neurological Exam Neurological exam: Alert, Oriented x3 - Skin Skin Exam: Dry, Intact, Normal Color Results - Vital Signs Recent Vital Signs: Last Vital Signs Temp 99.0 F 08/12/17 17:43 Pulse 95 H 08/12/17 17:43 Resp 16 08/12/17 17:43 BP 98/71 L 08/12/17 17:43 Pulse Ox 98 08/13/17 00:10 - Labs Result Diagrams: 08/12/17 20:00 08/12/17 20:00 Labs: Laboratory Results - last 24 hr 04/10/2408/12/17 08/12/17 20:00 20:00 20:00 WBC 12.2 H RBC 5.28 H Hgb 12.3 Hct 37.2 MCV 70.5 L D MCH 23.3 L MCHC 33.1 RDW 25.4 H Plt Count 372 MPV 9.8 Neut % (Auto) 76.0 H Lymph % (Auto) 20.5 [place] % (Auto) 2.7 Eos % (Auto) 0.4 Baso % (Auto) 0.4 Neut # (Auto) 9.3 H Lymph # (Auto) 2.5 [place] # (Auto) 0.3 Eos # (Auto) 0.0 Baso # (Auto) 0.0 PT INR APTT Sodium 138 Potassium 3.2 L Chloride 98 Carbon Dioxide 23 Anion Gap 20 BUN 14 Creatinine 0.6 L Est GFR ( Amer) > 60 Est GFR (Non-Af Amer) > 60 Random Glucose 116 H Lactic Acid 0.8 Calcium 9.8 Magnesium 2.0 Total Bilirubin 0.9 AST 16 ALT 26 Alkaline Phosphatase 91 Lactate Dehydrogenase 330 Total Protein 8.0 Albumin 4.4 Globulin 3.6 Albumin/Globulin Ratio 1.2 Lipase 37 Urine Color Urine Clarity Urine pH Ur Specific [place] Urine Protein Urine Glucose (UA) Urine Ketones Urine Blood Urine Nitrate Urine Bilirubin Urine Urobilinogen Ur Leukocyte Esterase Urine RBC (Auto) Urine Microscopic WBC Ur Squamous Epith Cells Urine Bacteria 08/12/17 08/12/17 20:00 22:03 WBC RBC Hgb Hct MCV MCH MCHC RDW Plt Count MPV Neut % (Auto) Lymph % (Auto) [place] % (Auto) Eos % (Auto) Baso % (Auto) Neut # (Auto) Lymph # (Auto) [place] # (Auto) Eos # (Auto) Baso # (Auto) PT 13.2 H INR 1.2 APTT 25.1 L Sodium Potassium Chloride Carbon Dioxide Anion Gap BUN Creatinine Est GFR ( Amer) Est GFR (Non-Af Amer) Random Glucose Lactic Acid Calcium Magnesium Total Bilirubin AST ALT Alkaline Phosphatase Lactate Dehydrogenase Total Protein Albumin Globulin Albumin/Globulin Ratio Lipase Urine Color Bev Urine Clarity Slighty-cloudy Urine pH 5.0 Ur Specific [place] 1.028 Urine Protein Negative Urine Glucose (UA) Neg Urine Ketones Trace Urine Blood Negative Urine Nitrate Negative Urine Bilirubin Negative Urine Urobilinogen 2.0 H Ur Leukocyte Esterase Mod Urine RBC (Auto) 3 Urine Microscopic WBC 19 H Ur Squamous Epith Cells 2 Urine Bacteria Rare Assessment & Plan - Assessment and Plan (Free Text) Assessment: 31 y/o F with PMHx of recent diagnosed colon cancer on chemotherapy and radiotherapy admitted with persistent abdominal pain and bloody diarrheas. Plan: Abdominal Pain -MedSurg unit -associated with bloody diarrheas -NPO for now -IV fluids -CT scan reported as finding suggestive of near fecal impaction with possible early developing colitis. -Colitis could be infectious vs chemotherapy related diarrheas -f/u stool cultures and leukocytes -f/u C diff in stools -CBC showed leukocytosis 12.2 on admission -f/u repeat CBC -f/u serum electrolytes -f/u BMP -f/u blood culture -c/w antibiotics: cipro and flagyl -consider GI consult if needed for recommendations Colon cancer -on chemotherapy and radiotherapy -Patient's oncologist : Dr. James -consider Onc consult for possible chemo related diarrheas Dysuria -abnormal UA noted on admission -moderate leukocyte esterase, elevated WBC -f/u Urine Cx Hypokalemia -most likely 2/2 diarrheas -K+ 3.2 -replace potassium -f/u repeat K+ -check for mag and phos DVT prophylaxis -SCDs - Date & Time Date: 08/13/17 Time: 00:55 <Gavi Howell - Last Filed: 08/13/17 09:57> Results - Vital Signs Recent Vital Signs: Last Vital Signs Temp 98.4 F 08/13/17 08:27 Pulse 95 H 08/13/17 08:27 Resp 20 08/13/17 08:27 BP 90/57 L 08/13/17 08:27 Pulse Ox 95 08/13/17 08:27 - Labs Result Diagrams: 08/13/17 05:05 08/13/17 05:05 Labs: Laboratory Results - last 24 hr 08/12/17 08/12/17 08/12/17 20:00 20:00 20:00 WBC 12.2 H RBC 5.28 H Hgb 12.3 Hct 37.2 MCV 70.5 L D MCH 23.3 L MCHC 33.1 RDW 25.4 H Plt Count 372 MPV 9.8 Neut % (Auto) 76.0 H Lymph % (Auto) 20.5 [place] % (Auto) 2.7 Eos % (Auto) 0.4 Baso % (Auto) 0.4 Neut # (Auto) 9.3 H Lymph # (Auto) 2.5 [place] # (Auto) 0.3 Eos # (Auto) 0.0 Baso # (Auto) 0.0 PT INR APTT Sodium 138 Potassium 3.2 L Chloride 98 Carbon Dioxide 23 Anion Gap 20 BUN 14 Creatinine 0.6 L Est GFR ( Amer) > 60 Est GFR (Non-Af Amer) > 60 Random Glucose 116 H Lactic Acid 0.8 Calcium 9.8 Phosphorus Magnesium 2.0 Total Bilirubin 0.9 AST 16 ALT 26 Alkaline Phosphatase 91 Lactate Dehydrogenase 330 Total Protein 8.0 Albumin 4.4 Globulin 3.6 Albumin/Globulin Ratio 1.2 Lipase 37 Urine Color Urine Clarity Urine pH Ur Specific [place] Urine Protein Urine Glucose (UA) Urine Ketones Urine Blood Urine Nitrate Urine Bilirubin Urine Urobilinogen Ur Leukocyte Esterase Urine RBC (Auto) Urine Microscopic WBC Ur Squamous Epith Cells Urine Bacteria 08/12/17 08/12/17 08/13/17 20:00 22:03 05:05 WBC 8.3 RBC 4.42 Hgb 10.4 L Hct 31.5 L MCV 71.3 L MCH 23.6 L MCHC 33.1 RDW 25.4 H Plt Count 256 D MPV 9.4 Neut % (Auto) 81.9 H Lymph % (Auto) 12.0 L [place] % (Auto) 2.8 Eos % (Auto) 2.9 Baso % (Auto) 0.4 Neut # (Auto) 6.8 Lymph # (Auto) 1.0 [place] # (Auto) 0.2 Eos # (Auto) 0.2 Baso # (Auto) 0.0 PT 13.2 H INR 1.2 APTT 25.1 L Sodium Potassium Chloride Carbon Dioxide Anion Gap BUN Creatinine Est GFR ( Amer) Est GFR (Non-Af Amer) Random Glucose Lactic Acid Calcium Phosphorus Magnesium Total Bilirubin AST ALT Alkaline Phosphatase Lactate Dehydrogenase Total Protein Albumin Globulin Albumin/Globulin Ratio Lipase Urine Color Bev Urine Clarity Slighty-cloudy Urine pH 5.0 Ur Specific [place] 1.028 Urine Protein Negative Urine Glucose (UA) Neg Urine Ketones Trace Urine Blood Negative Urine Nitrate Negative Urine Bilirubin Negative Urine Urobilinogen 2.0 H Ur Leukocyte Esterase Mod Urine RBC (Auto) 3 Urine Microscopic WBC 19 H Ur Squamous Epith Cells 2 Urine Bacteria Rare 08/13/17 08/13/17 05:05 05:05 WBC RBC Hgb Hct MCV MCH MCHC RDW Plt Count MPV Neut % (Auto) Lymph % (Auto) [place] % (Auto) Eos % (Auto) Baso % (Auto) Neut # (Auto) Lymph # (Auto) [place] # (Auto) Eos # (Auto) Baso # (Auto) PT INR APTT Sodium 133 Potassium 4.1 Chloride 98 Carbon Dioxide 24 Anion Gap 15 BUN 14 Creatinine 0.6 L Est GFR ( Amer) > 60 Est GFR (Non-Af Amer) > 60 Random Glucose 110 H Lactic Acid Calcium 8.4 Phosphorus 3.8 Magnesium 1.9 Total Bilirubin AST ALT Alkaline Phosphatase Lactate Dehydrogenase Total Protein Albumin Globulin Albumin/Globulin Ratio Lipase Urine Color Urine Clarity Urine pH Ur Specific [place] Urine Protein Urine Glucose (UA) Urine Ketones Urine Blood Urine Nitrate Urine Bilirubin Urine Urobilinogen Ur Leukocyte Esterase Urine RBC (Auto) Urine Microscopic WBC Ur Squamous Epith Cells Urine Bacteria Attending/Attestation - Attestation I have personally seen and examined this patient.: Yes I have fully participated in the care of the patient.: Yes I have reviewed all pertinent clinical information: Yes Notes (Text): 08/13/17 09:57 ATTENDING NOTE ATTESTATION. CHART REVIEWED. AGREE WITH FINDINGS AND PLAN.
[2017-08-13] MEDS ORDERED: Potassium Chloride 20 mEq ER Tab PO ONE ×2 (01:20→01:58)
[2017-08-13] MEDS ORDERED: Sodium Chloride 0.9% 1,000 ML IV SCH (01:30)
[2017-08-13] MEDS ORDERED: Potassium Chloride 20 mEq 100 ML IVPB SCH (02:00)
[2017-08-13] MEDS ORDERED: ZINC OXIDE CREAM(BALMEX) TOP PRN (07:43)
[2017-08-13 07:45] LABS: BLOOD UREA NITROGEN 14 mg/dl (7-17); CALCIUM 8.4 mg/dL (8.4-10.2); GFR AFRICAN-AMERICAN > 60; GFR NON-AFRICAN AMERICAN > 60
[2017-08-13 07:57] LABS: BASO % 0.4 % (0.0-2.0); EOS # 0.2 K/uL (0.0-0.7); EOS % 2.9 % (0.0-4.0); HEMOGLOBIN 10.4 g/dL (12.0-16.0); MEAN CELL VOLUME 71.3 fl (81.0-99.0); MEAN CORPUSCULAR HEMOGLOBIN 23.6 pg (27.0-31.0); MEAN CORPUSCULAR HGB CONC 33.1 g/dL (33.0-37.0); MEAN PLATELET VOLUME 9.4 fl (7.2-11.7); MONO # 0.2 K/uL (0.0-0.8); MONO % 2.8 % (0.0-10.0); NEUT # 6.8 K/uL (1.8-7.0); NEUT % 81.9 % (50.0-75.0); RBC 4.42 Mil/uL (3.80-5.20); RED CELL DISTRIBUTION WIDTH 25.4 % (11.5-14.5); WHITE BLOOD COUNT 8.3 K/uL (4.8-10.8)
[2017-08-13] MEDS ORDERED: Bismuth Subsalicylate 262 mg Chew Tab PO ONE (10:00)
[2017-08-13] MEDS: Sodium Chloride 0.9% 1,000 ML IV SCH ×3 (10:11→20:31)
[2017-08-13] MEDS: ZINC OXIDE CREAM(BALMEX) TOP SCH ×3 (11:30→17:57)
[2017-08-13] MEDS: metroNIDAZOLE 500mg/100ml NS 100 ML IVPB SCH ×2 (11:33→19:05)
[2017-08-13] MEDS: Ciprofloxacin 400mg/200ml D5W 400 MG/200 ML BAG IVPB SCH ×2 (12:51→20:37)
--- NOTE | 2017-08-13 18:51 | CP.PCM.CON ---
History of Present Illness - History of Present Illness History of Present Illness: 31 year old female with rectal adenocarcinoma diagnosed in 06/2017 on neoadjuvant chemotherapy + radiation, admitted with abdominal pain and diarrhea. 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 She has been receiving 5- fluorouracil chemotherapy with radiation. Past medical history: rectal cancer Past surgical history: None Family history: Denies hematologic and oncologic problems Social history: Denies tobacco, alcohol, and illicit drug use. Allergies: NKA Review of systems: All remaining review of systems including HEENT, cardiovascular, respiratory, gastrointestinal, genitourinary, musculoskeletal, dermatologic, neurologic, and psychiatric are negative unless mentioned in the HPI. Past Patient History - Infectious Disease Hx of Infectious Diseases: None - Tetanus Immunizations Tetanus Immunization: Unknown - Past Medical History & Family History Past Medical History?: Yes - Past Social History Alcohol: None Drugs: Denies - CARDIAC Hx Cardiac Disorders: No - PULMONARY Hx Asthma: Yes (asthma as a child but no asthma attacks during adulthood) - NEUROLOGICAL Hx Neurological Disorder: Yes Hx Dizziness: Yes Hx Vertigo: Yes - HEENT Hx HEENT Problems: No - RENAL Hx Chronic Kidney Disease: No - ENDOCRINE/METABOLIC Hx Endocrine Disorders: No - HEMATOLOGICAL/ONCOLOGICAL Hx Anemia: Yes (PT WAS IN THE HOSPITAL WITH HGB 6 AND 2 UNITS OF BLOOD TRANSFUSION) - INTEGUMENTARY Hx Dermatological Problems: No - MUSCULOSKELETAL/RHEUMATOLOGICAL Hx Musculoskeletal Disorders: No - GASTROINTESTINAL Hx Gastrointestinal Disorders: Yes Other/Comment: HX: RECTAL CANCER - GENITOURINARY/GYNECOLOGICAL Hx Genitourinary Disorders: No - PSYCHIATRIC Hx Anxiety: Yes Hx Depression: Yes - SURGICAL HISTORY Hx Surgeries: Yes Hx Section: Yes - ANESTHESIA Hx Anesthesia: Yes Hx Anesthesia Reactions: No Hx Malignant Hyperthermia: No Meds Allergies/Adverse Reactions: Allergies Allergy/AdvReac Type Severity Reaction Status Date / Time No Known Allergies Allergy Verified 06/28/17 12:48 - Medications Medications: Current Medications Ciprofloxacin (Cipro 400mg/200ml Dsw) 400 mg in 200 mls @ 200 mls/hr IVPB Q12 [facility] PRN Reason: Protocol Last Admin: 08/13/17 12:51 Dose: 200 mls/hr Metronidazole (Flagyl 500mg/100ml Ns) 100 mls @ 100 mls/hr IVPB Q8 [facility] PRN Reason: Protocol Last Admin: 08/13/17 11:33 Dose: 100 mls/hr Sodium Chloride (Sodium Chloride 0.9%) 1,000 mls @ 125 mls/hr IV .Q8H [facility] Stop: 08/14/17 01:21 Last Admin: 08/13/17 11:34 Dose: Not Given Ondansetron HCl (Zofran Tab) 4 mg PO Q6 PRN PRN Reason: Nausea/Vomiting Last Admin: 08/13/17 15:25 Dose: 4 mg Petrolatum (Balmex 11.3%) 1 applic TOP TID [facility] Last Admin: 08/13/17 17:57 Dose: 1 applic Physical Exam - Head Exam Head Exam: ATRAUMATIC - Eye Exam Eye Exam: Normal appearance - ENT Exam ENT Exam: Mucous Membranes Dry - Respiratory Exam Respiratory Exam: NORMAL BREATHING PATTERN - Cardiovascular Exam Cardiovascular Exam: +S1, +S2 - GI/Abdominal Exam GI & Abdominal Exam: Normal Bowel Sounds - Extremities Exam Extremities exam: Positive for: normal inspection - Neurological Exam Neurological exam: Oriented x3 - Psychiatric Exam Psychiatric exam: Normal Affect, Normal Mood - Skin Skin Exam: Warm Results - Vital Signs Recent Vital Signs: Last Vital Signs Temp 99.5 F 08/13/17 17:02 Pulse 94 H 08/13/17 17:02 Resp 18 08/13/17 17:02 BP 98/68 L 08/13/17 17:02 Pulse Ox 100 08/13/17 17:02 - Labs Result Diagrams: 08/13/17 05:05 08/13/17 05:05 Labs: Laboratory Results - last 24 hr 08/12/17 08/12/17 08/12/17 20:00 20:00 20:00 WBC 12.2 H RBC 5.28 H Hgb 12.3 Hct 37.2 MCV 70.5 L D MCH 23.3 L MCHC 33.1 RDW 25.4 H Plt Count 372 MPV 9.8 Neut % (Auto) 76.0 H Lymph % (Auto) 20.5 [place] % (Auto) 2.7 Eos % (Auto) 0.4 Baso % (Auto) 0.4 Neut # (Auto) 9.3 H Lymph # (Auto) 2.5 [place] # (Auto) 0.3 Eos # (Auto) 0.0 Baso # (Auto) 0.0 PT INR APTT Sodium 138 Potassium 3.2 L Chloride 98 Carbon Dioxide 23 Anion Gap 20 BUN 14 Creatinine 0.6 L Est GFR ( Amer) > 60 Est GFR (Non-Af Amer) > 60 Random Glucose 116 H Lactic Acid 0.8 Calcium 9.8 Phosphorus Magnesium 2.0 Total Bilirubin 0.9 AST 16 ALT 26 Alkaline Phosphatase 91 Lactate Dehydrogenase 330 Total Protein 8.0 Albumin 4.4 Globulin 3.6 Albumin/Globulin Ratio 1.2 Lipase 37 Urine Color Urine Clarity Urine pH Ur Specific [place] Urine Protein Urine Glucose (UA) Urine Ketones Urine Blood Urine Nitrate Urine Bilirubin Urine Urobilinogen Ur Leukocyte Esterase Urine RBC (Auto) Urine Microscopic WBC Ur Squamous Epith Cells Urine Bacteria C. difficile Ag & Toxin 08/12/17 08/12/17 08/13/17 20:00 22:03 05:05 WBC 8.3 RBC 4.42 Hgb 10.4 L Hct 31.5 L MCV 71.3 L MCH 23.6 L MCHC 33.1 RDW 25.4 H Plt Count 256 D MPV 9.4 Neut % (Auto) 81.9 H Lymph % (Auto) 12.0 L [place] % (Auto) 2.8 Eos % (Auto) 2.9 Baso % (Auto) 0.4 Neut # (Auto) 6.8 Lymph # (Auto) 1.0 [place] # (Auto) 0.2 Eos # (Auto) 0.2 Baso # (Auto) 0.0 PT 13.2 H INR 1.2 APTT 25.1 L Sodium Potassium Chloride Carbon Dioxide Anion Gap BUN Creatinine Est GFR ( Amer) Est GFR (Non-Af Amer) Random Glucose Lactic Acid Calcium Phosphorus Magnesium Total Bilirubin AST ALT Alkaline Phosphatase Lactate Dehydrogenase Total Protein Albumin Globulin Albumin/Globulin Ratio Lipase Urine Color Bev Urine Clarity Slighty-cloudy Urine pH 5.0 Ur Specific [place] 1.028 Urine Protein Negative Urine Glucose (UA) Neg Urine Ketones Trace Urine Blood Negative Urine Nitrate Negative Urine Bilirubin Negative Urine Urobilinogen 2.0 H Ur Leukocyte Esterase Mod Urine RBC (Auto) 3 Urine Microscopic WBC 19 H Ur Squamous Epith Cells 2 Urine Bacteria Rare C. difficile Ag & Toxin 08/13/17 08/13/17 08/13/17 05:05 05:05 09:46 WBC RBC Hgb Hct MCV MCH MCHC RDW Plt Count MPV Neut % (Auto) Lymph % (Auto) [place] % (Auto) Eos % (Auto) Baso % (Auto) Neut # (Auto) Lymph # (Auto) [place] # (Auto) Eos # (Auto) Baso # (Auto) PT INR APTT Sodium 133 Potassium 4.1 Chloride 98 Carbon Dioxide 24 Anion Gap 15 BUN 14 Creatinine 0.6 L Est GFR ( Amer) > 60 Est GFR (Non-Af Amer) > 60 Random Glucose 110 H Lactic Acid Calcium 8.4 Phosphorus 3.8 Magnesium 1.9 Total Bilirubin AST ALT Alkaline Phosphatase Lactate Dehydrogenase Total Protein Albumin Globulin Albumin/Globulin Ratio Lipase Urine Color Urine Clarity Urine pH Ur Specific [place] Urine Protein Urine Glucose (UA) Urine Ketones Urine Blood Urine Nitrate Urine Bilirubin Urine Urobilinogen Ur Leukocyte Esterase Urine RBC (Auto) Urine Microscopic WBC Ur Squamous Epith Cells Urine Bacteria C. difficile Ag & Toxin Negative Assessment & Plan (1) Anemia Assessment and Plan: iron deficiency anemia will start IV iron Status: Acute (2) Rectal cancer Assessment and Plan: on neoadjuvant chemotherapy and radiation outpatient treatment. Thank you for this interesting consult. Status: Acute
[2017-08-14] MEDS: metroNIDAZOLE 500mg/100ml NS 100 ML IVPB SCH ×3 (01:39→16:47)
[2017-08-14] MEDS: Sodium Chloride 0.9% 1,000 ML IV SCH ×3 (09:11→20:35)
[2017-08-14] MEDS: ZINC OXIDE CREAM(BALMEX) TOP SCH ×3 (09:13→16:47)
[2017-08-14 10:32] LABS: BASO % 0.3 % (0.0-2.0); EOS # 0.2 K/uL (0.0-0.7); EOS % 4.8 % (0.0-4.0); HEMOGLOBIN 10.1 g/dL (12.0-16.0); LYMPH # 0.8 K/uL (1.0-4.3); LYMPH % 18.5 % (20.0-40.0); MEAN CELL VOLUME 71.5 fl (81.0-99.0); MEAN CORPUSCULAR HEMOGLOBIN 23.3 pg (27.0-31.0); MEAN CORPUSCULAR HGB CONC 32.6 g/dL (33.0-37.0); MEAN PLATELET VOLUME 8.7 fl (7.2-11.7); MONO # 0.1 K/uL (0.0-0.8); MONO % 2.6 % (0.0-10.0); NEUT % 73.8 % (50.0-75.0); RBC 4.31 Mil/uL (3.80-5.20); RED CELL DISTRIBUTION WIDTH 24.6 % (11.5-14.5)
[2017-08-14 10:44] LABS: WHITE BLOOD COUNT 4.1 K/uL (4.8-10.8)
[2017-08-14 10:48] LABS: BLOOD UREA NITROGEN 11 mg/dl (7-17); CALCIUM 8.7 mg/dL (8.4-10.2); GFR AFRICAN-AMERICAN > 60; GFR NON-AFRICAN AMERICAN > 60
[2017-08-14] MEDS: Ciprofloxacin 400mg/200ml D5W 400 MG/200 ML BAG IVPB SCH ×2 (10:58→20:27)
--- NOTE | 2017-08-14 13:46 | CP.PCM.PN ---
<Wanda Mcmanus - Last Filed: 08/14/17 13:44> Subjective - Date & Time of Evaluation Date of Evaluation: 08/14/17 Time of Evaluation: 13:44 - Subjective Subjective: no overnight events. diarrhea x1, decreased. abd pain resolved. feeling hungry. Objective - Vital Signs/Intake and Output Vital Signs (last 24 hours): Temp Pulse Resp BP Pulse Ox 98.4 F 92 H 20 90/58 L 98 08/14/17 09:02 08/14/17 09:02 08/14/17 09:02 08/14/17 09:02 08/14/17 09:02 - Medications Medications: Current Medications Ciprofloxacin (Cipro 400mg/200ml Dsw) 400 mg in 200 mls @ 200 mls/hr IVPB Q12 [facility] PRN Reason: Protocol Last Admin: 08/14/17 10:58 Dose: 200 mls/hr Metronidazole (Flagyl 500mg/100ml Ns) 100 mls @ 100 mls/hr IVPB Q8 [facility] PRN Reason: Protocol Last Admin: 08/14/17 09:12 Dose: 100 mls/hr Iron Sucrose 200 mg/ Sodium (Chloride) 110 mls @ 110 mls/hr IVPB DAILY [facility] Stop: 08/19/17 09:01 Last Admin: 08/14/17 13:10 Dose: 110 mls/hr Sodium Chloride (Sodium Chloride 0.9%) 1,000 mls @ 100 mls/hr IV .Q10H [facility] Stop: 08/15/17 08:59 Last Admin: 08/14/17 09:11 Dose: 100 mls/hr Ketorolac Tromethamine (Toradol) 15 mg IVP Q6 PRN PRN Reason: Pain, moderate (4-7) Last Admin: 08/13/17 22:31 Dose: 15 mg Ondansetron HCl (Zofran Tab) 4 mg PO Q6 PRN PRN Reason: Nausea/Vomiting Last Admin: 08/13/17 15:25 Dose: 4 mg Petrolatum (Balmex 11.3%) 1 applic TOP TID [facility] Last Admin: 08/14/17 13:09 Dose: 1 applic - Labs Labs: 08/14/17 10:15 08/14/17 10:15 PT 13.2 Seconds (9.8-13.1) H 08/12/17 20:00 INR 1.2 (0.9-1.2) 08/12/17 20:00 APTT 25.1 Seconds (25.6-37.1) L 08/12/17 20:00 - Constitutional Appears: Non-toxic, No Acute Distress - Head Exam Head Exam: ATRAUMATIC, NORMAL INSPECTION - Eye Exam Eye Exam: Normal appearance - ENT Exam ENT Exam: Mucous Membranes Moist - Neck Exam Neck Exam: Full ROM, Normal Inspection - Respiratory Exam Respiratory Exam: Clear to Ausculation Bilateral, NORMAL BREATHING PATTERN - Cardiovascular Exam Cardiovascular Exam: REGULAR RHYTHM - GI/Abdominal Exam GI & Abdominal Exam: Soft - Extremities Exam Extremities Exam: Normal Inspection - Back Exam Back Exam: NORMAL INSPECTION - Neurological Exam Neurological Exam: Alert, Oriented x3 - Skin Skin Exam: Dry, Warm Assessment and Plan - Assessment and Plan (Free Text) Assessment: A: 31yo F with PMHx colon cancer on chemotherapy and radiotherapy admitted with persistent abdominal pain and bloody diarrheas. Plan: advance diet as tolerated. likely d/c Mon. H/O Erika onboard diarrhea -likely 2/2 radiation -CT abd/pelvis: near fecal impaction with possible early developing colitis. -Colitis could be infectious vs chemotherapy related diarrheas -f/u stool cultures and leukocytes, C diff -CBC showed leukocytosis 12.2 on admission -c/w antibiotics: cipro and flagyl, convert to PO if tolerating diet Colon cancer -on chemotherapy and radiotherapy -H/O Dr. James on board, appreciate input Hypokalemia -resolved DVT prophylaxis -SCDs <Gavi Howell - Last Filed: 08/15/17 06:56> Objective - Vital Signs/Intake and Output Vital Signs (last 24 hours): Temp Pulse Resp BP Pulse Ox 98.1 F 77 18 98/66 L 99 08/14/17 23:45 08/14/17 23:45 08/14/17 23:45 08/14/17 23:45 08/14/17 23:45 - Medications Medications: Current Medications Ciprofloxacin (Cipro 400mg/200ml Dsw) 400 mg in 200 mls @ 200 mls/hr IVPB Q12 [facility] PRN Reason: Protocol Last Admin: 08/14/17 20:27 Dose: 200 mls/hr Metronidazole (Flagyl 500mg/100ml Ns) 100 mls @ 100 mls/hr IVPB Q8 [facility] PRN Reason: Protocol Last Admin: 08/15/17 01:37 Dose: 100 mls/hr Iron Sucrose 200 mg/ Sodium (Chloride) 110 mls @ 110 mls/hr IVPB DAILY [facility] Stop: 08/19/17 09:01 Last Admin: 08/14/17 13:10 Dose: 110 mls/hr Sodium Chloride (Sodium Chloride 0.9%) 1,000 mls @ 100 mls/hr IV .Q10H [facility] Stop: 08/15/17 08:59 Last Admin: 08/15/17 05:07 Dose: Not Given Ketorolac Tromethamine (Toradol) 15 mg IVP Q6 PRN PRN Reason: Pain, moderate (4-7) Last Admin: 08/14/17 19:02 Dose: 15 mg Ondansetron HCl (Zofran Tab) 4 mg PO Q6 PRN PRN Reason: Nausea/Vomiting Last Admin: 08/14/17 19:01 Dose: 4 mg Petrolatum (Balmex 11.3%) 1 applic TOP TID [facility] Last Admin: 08/14/17 16:47 Dose: 1 applic - Labs Labs: 08/14/17 10:15 08/14/17 10:15 PT 13.2 Seconds (9.8-13.1) H 08/12/17 20:00 INR 1.2 (0.9-1.2) 08/12/17 20:00 APTT 25.1 Seconds (25.6-37.1) L 08/12/17 20:00 Attending/Attestation - Attestation I have personally seen and examined this patient.: Yes I have fully participated in the care of the patient.: Yes I have reviewed all pertinent clinical information, including history, physical exam and plan: Yes Notes (Text): 08/15/17 06:56 PATIENT SEEN AND EXAMINED. CASE DISCUSSED WITH RESIDENT. RESIDENT WILL CONTACT PATIENTS ONCOLOGIST TO DISCUSS DISPOSITION. AGREE WITH FINDINGS AND PLAN.
[2017-08-14 23:46] VITALS: PULSE 77; O2SAT 99
[2017-08-15] MEDS: metroNIDAZOLE 500mg/100ml NS 100 ML IVPB SCH ×2 (01:37→08:53)
[2017-08-15] MEDS: Sodium Chloride 0.9% 1,000 ML IV SCH (05:07)
[2017-08-15 07:20] LABS: BASO % 0.4 % (0.0-2.0); EOS # 0.3 K/uL (0.0-0.7); EOS % 7.7 % (0.0-4.0); HEMOGLOBIN 9.3 g/dL (12.0-16.0); LYMPH # 0.7 K/uL (1.0-4.3); LYMPH % 19.9 % (20.0-40.0); MEAN CELL VOLUME 71.6 fl (81.0-99.0); MEAN CORPUSCULAR HEMOGLOBIN 23.7 pg (27.0-31.0); MEAN CORPUSCULAR HGB CONC 33.1 g/dL (33.0-37.0); MEAN PLATELET VOLUME 9.7 fl (7.2-11.7); MONO # 0.1 K/uL (0.0-0.8); MONO % 2.9 % (0.0-10.0); NEUT # 2.4 K/uL (1.8-7.0); NEUT % 69.1 % (50.0-75.0); RBC 3.94 Mil/uL (3.80-5.20); RED CELL DISTRIBUTION WIDTH 24.5 % (11.5-14.5); WHITE BLOOD COUNT 3.5 K/uL (4.8-10.8)
[2017-08-15 07:36] LABS: BLOOD UREA NITROGEN 8 mg/dl (7-17); CALCIUM 8.8 mg/dL (8.4-10.2); GFR AFRICAN-AMERICAN > 60; GFR NON-AFRICAN AMERICAN > 60
[2017-08-15 08:12] VITALS: BP 91/61; RESP 20; TEMP 98.3
[2017-08-15] MEDS: ZINC OXIDE CREAM(BALMEX) TOP SCH ×2 (08:53→13:25)
[2017-08-15] MEDS: Ciprofloxacin 400mg/200ml D5W 400 MG/200 ML BAG IVPB SCH (10:18)
--- NOTE | 2017-08-15 11:57 | CP.PCM.DIS ---
Provider - Provider Date of Admission: 08/12/17 23:42 Attending physician: Kayli Quezada MD Consults: Dr Omer James, Heme/Onc Time Spent in preparation of Discharge (in minutes): 30 Diagnosis - Discharge Diagnosis (1) Colitis Status: Acute (2) Rectal cancer Status: Acute Hospital Course - Lab Results Lab Results: Micro Results 08/13/17 13:01 Stool Stool Culture - Final NO SALMONELLA, SHIGELLA OR CAMPYLOBACTER ISOLATED. 08/12/17 20:00 Blood Blood Culture - Preliminary NO GROWTH AFTER 48 HOURS 08/13/17 08:00 Urine,Clean Catch Urine Culture - Final No Growth (<1,000 CFU/ML) Most Recent Lab Values WBC 3.5 K/uL (4.8-10.8) L 08/15/17 06:00 RBC 3.94 Mil/uL (3.80-5.20) 08/15/17 06:00 Hgb 9.3 g/dL (12.0-16.0) L 08/15/17 06:00 Hct 28.2 % (34.0-47.0) L 08/15/17 06:00 MCV 71.6 fl (81.0-99.0) L 08/15/17 06:00 MCH 23.7 pg (27.0-31.0) L 08/15/17 06:00 MCHC 33.1 g/dL (33.0-37.0) 08/15/17 06:00 RDW 24.5 % (11.5-14.5) H 08/15/17 06:00 Plt Count 209 K/uL (130-400) 08/15/17 06:00 MPV 9.7 fl (7.2-11.7) 08/15/17 06:00 Neut % (Auto) 69.1 % (50.0-75.0) 08/15/17 06:00 Lymph % (Auto) 19.9 % (20.0-40.0) L 08/15/17 06:00 [place] % (Auto) 2.9 % (0.0-10.0) 08/15/17 06:00 Eos % (Auto) 7.7 % (0.0-4.0) H 08/15/17 06:00 Baso % (Auto) 0.4 % (0.0-2.0) 08/15/17 06:00 Neut # (Auto) 2.4 K/uL (1.8-7.0) 08/15/17 06:00 Lymph # (Auto) 0.7 K/uL (1.0-4.3) L 08/15/17 06:00 [place] # (Auto) 0.1 K/uL (0.0-0.8) 08/15/17 06:00 Eos # (Auto) 0.3 K/uL (0.0-0.7) 08/15/17 06:00 Baso # (Auto) 0.0 K/uL (0.0-0.2) 08/15/17 06:00 PT 13.2 Seconds (9.8-13.1) H 08/12/17 20:00 INR 1.2 (0.9-1.2) 08/12/17 20:00 APTT 25.1 Seconds (25.6-37.1) L 08/12/17 20:00 Sodium 141 mmol/l (132-148) 08/15/17 06:00 Potassium 4.0 MMOL/L (3.6-5.0) 08/15/17 06:00 Chloride 104 mmol/L (98-107) 08/15/17 06:00 Carbon Dioxide 25 mmol/L (22-30) 08/15/17 06:00 Anion Gap 16 (10-20) 08/15/17 06:00 BUN 8 mg/dl (7-17) 08/15/17 06:00 Creatinine 0.6 mg/dl (0.7-1.2) L 08/15/17 06:00 Est GFR ( Amer) > 60 08/15/17 06:00 Est GFR (Non-Af Amer) > 60 08/15/17 06:00 Random Glucose 118 mg/dL (65-105) H 08/15/17 06:00 Lactic Acid 0.8 MMOL/L (0.7-2.1) 08/12/17 20:00 Calcium 8.8 mg/dL (8.4-10.2) 08/15/17 06:00 Phosphorus 3.8 mg/dl (2.5-4.5) 08/13/17 05:05 Magnesium 1.9 MG/DL (1.6-2.3) 08/13/17 05:05 Total Bilirubin 0.9 mg/dl (0.2-1.3) 08/12/17 20:00 AST 16 U/L (14-36) 08/12/17 20:00 ALT 26 U/L (9-52) 08/12/17 20:00 Alkaline Phosphatase 91 U/L (38-126) 08/12/17 20:00 Lactate Dehydrogenase 330 U/L (313-618) 08/12/17 20:00 Total Protein 8.0 G/DL (6.3-8.2) 08/12/17 20:00 Albumin 4.4 g/dL (3.5-5.0) 08/12/17 20:00 Globulin 3.6 gm/dL (2.2-3.9) 08/12/17 20:00 Albumin/Globulin Ratio 1.2 (1.0-2.1) 08/12/17 20:00 Lipase 37 U/L (23-300) 08/12/17 20:00 Urine Color Bev (YELLOW) 08/12/17 22:03 Urine Clarity Slighty-cloudy (Clear) 08/12/17 22:03 Urine pH 5.0 (5.0-8.0) 08/12/17 22:03 Ur Specific [place] 1.028 (1.003-1.030) 08/12/17 22:03 Urine Protein Negative mg/dL (NEGATIVE) 08/12/17 22:03 Urine Glucose (UA) Neg mg/dL (Normal) 08/12/17 22:03 Urine Ketones Trace mg/dL (NEGATIVE) 08/12/17 22:03 Urine Blood Negative (NEGATIVE) 08/12/17 22:03 Urine Nitrate Negative (NEGATIVE) 08/12/17 22:03 Urine Bilirubin Negative (NEGATIVE) 08/12/17 22:03 Urine Urobilinogen 2.0 mg/dL (0.2-1.0) H 08/12/17 22:03 Ur Leukocyte Esterase Mod [place]/uL (Negative) 08/12/17 22:03 Urine RBC (Auto) 3 /hpf (0-3) 08/12/17 22:03 Urine Microscopic WBC 19 /hpf (0-5) H 08/12/17 22:03 Ur Squamous Epith Cells 2 /hpf (0-5) 08/12/17 22:03 Urine Bacteria Rare (<OCC) 08/12/17 22:03 C. difficile Ag & Toxin Negative (NEGATIVE) 08/13/17 09:46 - Hospital Course Hospital Course: 31 y/o F with PMHx of recent diagnosed colon cancer on chemotherapy and radiotherapy admitted for abdominal pain and bloody diarrheas x 1day. Admission time CT scan showed near fecal impaction with possible early developing colitis. Labs initially showed leukocytosis and then mild neutropenia, anemia probably secondary to chemo. CMP wnl, C diff neg, BCX and urine cx negative. Heme/onco was on board. Patient condition improved. Patient stable and asymptomatic at discharge time. Patient has f/u appt with PMD on 08/25/17 at [facility] and with Heme/onco Dr James on 09/05/17. Discharge Exam - Head Exam Head Exam: ATRAUMATIC, NORMAL INSPECTION - Eye Exam Eye Exam: EOMI, PERRL - Respiratory Exam Respiratory Exam: Clear to PA & Lateral. absent: Chest Wall Tenderness, Rales, Rhonchi, Wheezes - Cardiovascular Exam Cardiovascular Exam: REGULAR RHYTHM, +S1, +S2. absent: Tachycardia, Systolic Murmur - GI/Abdominal Exam GI & Abdominal Exam: Normal Bowel Sounds, Soft. absent: Distended, Tenderness - Back Exam Back exam: absent: CVA tenderness (L), CVA tenderness (R) - Neurological Exam Neurological exam: Alert, CN II-XII Intact, Oriented x3 - Psychiatric Exam Psychiatric exam: Normal Mood - Skin Skin Exam: Dry, Warm Discharge Plan - Follow Up Plan Condition: STABLE Disposition: HOME/ ROUTINE Instructions: Colon and Rectal Cancer (DC), Normocytic Normochromic Anemia (DC) Additional Instructions: f/u appt with PMD Dr Mcmanus on 08/25/17 at 3: 20pm. Please call to arrange for an appt with Heme/onc Dr James in 2-3 days. ER precautions [place] radiation lunes a viernes [phone] a las 8:45am Referrals: [facility] [Outside] Omer James MD [Staff Provider] -
--- NOTE | 2017-08-15 13:43 | CARD ---
APPROVED REPORT EKG Measurement Heart [id number] <Conclusion> Normal sinus rhythm Normal ECG
== END 2017-08-15 15:19 | disposition home or self-care (01) | DRG 813 ==
LOC: H.ER 17:34 → H.ERHOLD 23:42 → H.MEDSURG1 08-13 02:49
PROVIDERS: ADMIT Family Medicine Geriatric Medicine; ATTEND Family Medicine Geriatric Medicine
DX: K52.9 Noninfective gastroenteritis and colitis, unspecified (principal); K56.41 Fecal impaction; C19 Malignant neoplasm of rectosigmoid junction; N83.202 Unspecified ovarian cyst, left side; D64.81 Anemia due to antineoplastic chemotherapy; D70.1 Agranulocytosis secondary to cancer chemotherapy; T45.1X5A Adverse effect of antineoplastic and immunosuppressive drugs, initial encounter; Z82.49 Family history of ischemic heart disease and other diseases of the circulatory system; Z83.3 Family history of diabetes mellitus; F32.9 Major depressive disorder, single episode, unspecified; F41.9 Anxiety disorder, unspecified; D50.9 Iron deficiency anemia, unspecified; J45.909 Unspecified asthma, uncomplicated